=== PATIENT | female | born 1965 | race Caucasian/White ===

== ENCOUNTER → 2016-10-14 | Outpatient (REF) | payer OTHER ==
[~2016-10-14] MED LIST: FISH1000 PO; MOBI15TA PO; MULT1TAB10 PO; SERT-141 PO; TRAZ50TA4 PO; VITA500C24 PO
[2016-10-14 16:49] LABS: ALBUMIN 3.5 GM/DL (3.2-5.2); ALT/SGPT 33 U/L (12-78); GLOMERULAR FILTRATION RATE > 60.0 (>51)
[2016-10-14 17:21] LABS: BASO % 0.3 % (0.0-1.0); EOS # 0.1 K/mm3 (0.0-0.50); EOS % 1.4 % (0.0-3.0); LARGE UNSTAINED CELL # 0.3 K/mm3 (0.0-0.4); LARGE UNSTAINED CELL % 3.8 % (0.0-4.0); LYMPH % 24.3 % (24.0-44.0); MEAN CORPUSCULAR HGB CONC 33.7 g/dl (32.0-36.5); MONO # 0.6 K/mm3 (0.0-0.8); MONO % 6.7 % (0.0-5.0); NEUTROPHILS # 5.2 K/mm3 (1.8-7.7); NEUTROPHILS % 63.6 % (36.0-66.0); PLATELET COUNT, AUTOMATED 314 k/mm3 (150-450); RED CELL DISTRIBUTION WIDTH 13.8 % (11.5-14.5); WHITE BLOOD COUNT 8.2 K/mm3 (4.0-10.0)
[2016-10-14 17:43] LABS: ERYTHROCYTE SEDIMENTATION RATE 43 mm/hr (0-30)
== END ==
LOC: M LABDRWCV 16:17
PROVIDERS: ATTEND Internal Medicine Rheumatology
DX: M05.79 Rheumatoid arthritis with rheumatoid factor of multiple sites without organ or systems involvement (principal); Z79.899 Other long term (current) drug therapy

== ENCOUNTER → 2016-11-05 | Outpatient (REF) | payer OTHER | LOC: M LABDRAWC 16:13 → M LABDRWCV 16:13 | PROVIDERS: ATTEND Internal Medicine Rheumatology | DX: E55.9 Vitamin D deficiency, unspecified (principal) ==

== ENCOUNTER → 2016-11-25 | Outpatient (REF) | payer OTHER ==
[2016-11-25 18:55] LABS: ALBUMIN 3.8 GM/DL (3.2-5.2); ALT/SGPT 30 U/L (12-78); CREATININE FOR GFR 0.78 MG/DL (0.55-1.02); GLOMERULAR FILTRATION RATE > 60.0 (>51)
[2016-11-25 19:23] LABS: BASO % 0.4 % (0.0-1.0); EOS # 0.1 K/mm3 (0.0-0.50); EOS % 1.5 % (0.0-3.0); LARGE UNSTAINED CELL # 0.2 K/mm3 (0.0-0.4); LARGE UNSTAINED CELL % 2.8 % (0.0-4.0); LYMPH # 2.2 K/mm3 (1.5-4.5); MEAN CORPUSCULAR HEMOGLOBIN 30.5 pg (27.0-33.0); MEAN CORPUSCULAR HGB CONC 32.1 g/dl (32.0-36.5); MEAN CORPUSCULAR VOLUME 94.8 fl (80.0-96.0); MONO # 0.7 K/mm3 (0.0-0.8); MONO % 8.7 % (0.0-5.0); NEUTROPHILS # 4.9 K/mm3 (1.8-7.7); NEUTROPHILS % 61.6 % (36.0-66.0); PLATELET COUNT, AUTOMATED 324 k/mm3 (150-450); RED CELL DISTRIBUTION WIDTH 13.9 % (11.5-14.5)
== END ==
LOC: M LAB REF 16:51
PROVIDERS: ATTEND Internal Medicine Rheumatology
DX: M05.79 Rheumatoid arthritis with rheumatoid factor of multiple sites without organ or systems involvement (principal); M77.01 Medial epicondylitis, right elbow; M77.42 Metatarsalgia, left foot; Z79.899 Other long term (current) drug therapy

== ENCOUNTER → 2016-12-14 | Outpatient (REF) | payer OTHER ==
[~2016-12-14] MED LIST changes: -SERT-141 PO; +SERT50TA PO
[2016-12-14 12:27] LABS: BASO % 0.3 % (0.0-1.0); EOS # 0.1 K/mm3 (0.0-0.50); LARGE UNSTAINED CELL # 0.2 K/mm3 (0.0-0.4); LARGE UNSTAINED CELL % 2.6 % (0.0-4.0); LYMPH # 1.7 K/mm3 (1.5-4.5); LYMPH % 18.9 % (24.0-44.0); MEAN CORPUSCULAR HEMOGLOBIN 30.1 pg (27.0-33.0); MEAN CORPUSCULAR HGB CONC 33.2 g/dl (32.0-36.5); MEAN CORPUSCULAR VOLUME 90.6 fl (80.0-96.0); MONO # 0.6 K/mm3 (0.0-0.8); NEUTROPHILS # 6.2 K/mm3 (1.8-7.7); NEUTROPHILS % 70.2 % (36.0-66.0); PLATELET COUNT, AUTOMATED 328 k/mm3 (150-450); RED CELL DISTRIBUTION WIDTH 13.6 % (11.5-14.5); WHITE BLOOD COUNT 8.8 K/mm3 (4.0-10.0)
[2016-12-14 12:39] LABS: ANION GAP 9 MEQ/L (8-16); BLOOD UREA NITROGEN 19 MG/DL (7-18); CALCIUM LEVEL 9.5 MG/DL (8.5-10.1); CARBON DIOXIDE LEVEL 28 MEQ/L (21-32); CHLORIDE LEVEL 103 MEQ/L (98-107); CREATININE FOR GFR 0.71 MG/DL (0.55-1.02); GLOMERULAR FILTRATION RATE > 60.0 (>51); GLUCOSE, FASTING 78 MG/DL (70-105); POTASSIUM SERUM 4.6 MEQ/L (3.5-5.1); SODIUM LEVEL 140 MEQ/L (136-145)
== END ==
LOC: M LABDRAWC 11:37
PROVIDERS: ATTEND Orthopaedic Surgery
DX: M20.12 Hallux valgus (acquired), left foot (principal)

== ENCOUNTER → 2017-01-04 | Outpatient (REF) | payer OTHER ==
[2017-01-04 19:06] LABS: BASO % 0.4 % (0.0-1.0); EOS # 0.1 K/mm3 (0.0-0.50); EOS % 1.4 % (0.0-3.0); LARGE UNSTAINED CELL # 0.2 K/mm3 (0.0-0.4); LARGE UNSTAINED CELL % 2.3 % (0.0-4.0); LYMPH # 2.2 K/mm3 (1.5-4.5); LYMPH % 19.6 % (24.0-44.0); MEAN CORPUSCULAR HEMOGLOBIN 29.9 pg (27.0-33.0); MEAN CORPUSCULAR HGB CONC 32.8 g/dl (32.0-36.5); MEAN CORPUSCULAR VOLUME 91.2 fl (80.0-96.0); MONO # 0.6 K/mm3 (0.0-0.8); MONO % 5.9 % (0.0-5.0); NEUTROPHILS % 70.3 % (36.0-66.0); PLATELET COUNT, AUTOMATED 347 k/mm3 (150-450); RED CELL DISTRIBUTION WIDTH 13.9 % (11.5-14.5); WHITE BLOOD COUNT 9.9 K/mm3 (4.0-10.0)
[2017-01-04 20:12] LABS: ALBUMIN 3.9 GM/DL (3.2-5.2); ALT/SGPT 54 U/L (12-78); CREATININE FOR GFR 0.76 MG/DL (0.55-1.02); GLOMERULAR FILTRATION RATE > 60.0 (>51)
== END ==
LOC: M LABDRWCV 16:24
PROVIDERS: ATTEND Internal Medicine Rheumatology
DX: Z51.81 Encounter for therapeutic drug level monitoring (principal); Z79.899 Other long term (current) drug therapy; M05.79 Rheumatoid arthritis with rheumatoid factor of multiple sites without organ or systems involvement; M77.42 Metatarsalgia, left foot

== ENCOUNTER → 2017-01-27 | Outpatient (REF) | payer OTHER ==
[2017-01-27 17:41] LABS: ALBUMIN 3.6 GM/DL (3.2-5.2); ALT/SGPT 34 U/L (12-78); CREATININE FOR GFR 0.82 MG/DL (0.55-1.02); GLOMERULAR FILTRATION RATE > 60.0 (>51)
[2017-01-27 18:00] LABS: BASO % 0.3 % (0.0-1.0); EOS # 0.1 K/mm3 (0.0-0.50); EOS % 1.5 % (0.0-3.0); LARGE UNSTAINED CELL # 0.3 K/mm3 (0.0-0.4); LYMPH # 1.8 K/mm3 (1.5-4.5); LYMPH % 19.7 % (24.0-44.0); MEAN CORPUSCULAR HEMOGLOBIN 30.7 pg (27.0-33.0); MEAN CORPUSCULAR HGB CONC 32.6 g/dl (32.0-36.5); MEAN CORPUSCULAR VOLUME 94.2 fl (80.0-96.0); MONO # 0.8 K/mm3 (0.0-0.8); MONO % 8.7 % (0.0-5.0); NEUTROPHILS # 6.2 K/mm3 (1.8-7.7); NEUTROPHILS % 66.8 % (36.0-66.0); PLATELET COUNT, AUTOMATED 334 k/mm3 (150-450); RED CELL DISTRIBUTION WIDTH 14.2 % (11.5-14.5); WHITE BLOOD COUNT 9.3 K/mm3 (4.0-10.0)
== END ==
LOC: M LAB REF 16:31
PROVIDERS: ATTEND Internal Medicine Rheumatology
DX: M05.79 Rheumatoid arthritis with rheumatoid factor of multiple sites without organ or systems involvement (principal); M77.42 Metatarsalgia, left foot; M77.01 Medial epicondylitis, right elbow; Z79.899 Other long term (current) drug therapy

== ENCOUNTER → 2017-01-28 | Outpatient (REF) | payer OTHER | LOC: M LABDRAW1 11:31 | PROVIDERS: ATTEND Neurological Surgery | DX: E66.9 Obesity, unspecified (principal) ==

== ENCOUNTER → 2017-02-26 | Outpatient (REF) | payer OTHER ==
[~2017-02-26] MED LIST changes: +ARNU1INH; +GABA600T; +METH2.5TA PO; +MOBI7.5T10 PO; +NYST50SS SS; +OMEP20CA3; +SERT-138
[2017-02-26 11:51] LABS: BASO % 0.4 % (0.0-1.0); EOS # 0.1 K/mm3 (0.0-0.50); EOS % 1.5 % (0.0-3.0); LARGE UNSTAINED CELL # 0.3 K/mm3 (0.0-0.4); LYMPH # 1.6 K/mm3 (1.5-4.5); LYMPH % 17.8 % (24.0-44.0); MEAN CORPUSCULAR HEMOGLOBIN 30.1 pg (27.0-33.0); MEAN CORPUSCULAR HGB CONC 32.6 g/dl (32.0-36.5); MEAN CORPUSCULAR VOLUME 92.3 fl (80.0-96.0); MONO # 0.7 K/mm3 (0.0-0.8); MONO % 7.9 % (0.0-5.0); NEUTROPHILS # 6.4 K/mm3 (1.8-7.7); NEUTROPHILS % 69.5 % (36.0-66.0); PLATELET COUNT, AUTOMATED 324 k/mm3 (150-450); RED CELL DISTRIBUTION WIDTH 14.8 % (11.5-14.5); WHITE BLOOD COUNT 9.2 K/mm3 (4.0-10.0)
[2017-02-26 12:04] LABS: ALBUMIN 3.4 GM/DL (3.2-5.2); ALT/SGPT 34 U/L (12-78); CREATININE FOR GFR 0.73 MG/DL (0.55-1.02); GLOMERULAR FILTRATION RATE > 60.0 (>51)
== END ==
LOC: M LABDRAWC 11:15
PROVIDERS: ATTEND Internal Medicine Rheumatology
DX: M05.79 Rheumatoid arthritis with rheumatoid factor of multiple sites without organ or systems involvement (principal); M77.01 Medial epicondylitis, right elbow; M77.42 Metatarsalgia, left foot; Z79.899 Other long term (current) drug therapy

== ENCOUNTER 2017-03-04 11:59 | Emergency (ER) | payer OTHER ==
[~2017-03-04] VITALS: Ht 165.1 cm; Wt 96.6 kg
[~2017-03-04 11:59] MED LIST changes: -ARNU1INH; -GABA600T; -METH2.5TA PO; -MOBI7.5T10 PO; -NYST50SS SS; -OMEP20CA3; -SERT-138
[2017-03-04] MEDS ORDERED: METH2.5TA PO (12:15)
[2017-03-04] MEDS ORDERED: ASPIRIN 81 MG CHEW TABLET PO ONE (13:15)
[2017-03-04] MEDS ORDERED: MORPHINE 2 MG/ML 1ML SYRINGE IV PRN (13:15)
--- NOTE | 2017-03-04 13:23 | ED PDOC ---
Post-Departure Follow-Up Patient presents to the ED with onset of posterior chest pain (between shoulder blades) that radiated up the back of her neck yesterday. Today pain is also anterior chest. Pain is reproducible with inspiration and palpation, however, she is post-menopausal (s/p hysterectomy), smokes cigarettes and has had recent orthopedic surgery which elevates the concern for cardiac or PE as cause of chest pain. Orders were placed to evaluate further. ASA and morphine was ordered for pain. NED STOREY. [employer]ACHINE [employer]ED[employer] Mar 04, 2017 13:23
--- NOTE | 2017-03-04 13:49 | REP ---
PA and lateral chest: Comparison 03/19/2016. Lung garcia are clear except for bibasilar parenchymal scarring, unchanged. There are no acute infiltrates. No masses or nodules. Cardiac size is normal. The debora, mediastinum, and bony thorax are. Impression: Essentially negative PA and lateral chest. No interval change. Signed by Emiliano Villela MD 03/04/2017 01:41 P
[2017-03-04 14:10] LABS: VENOUS BASE EXCESS 2.9 (-2.0-2.0); VENOUS O2 SATURATION 73.4 % (60.0-80.0); VENOUS PARTIAL PRESSURE CO2 49.7 mmHg (38.0-50.0); VENOUS PARTIAL PRESSURE O2 38.1 mmHg (30.0-50.0); VENOUS STANDARD HCO3 26.5 MEQ/L; VENOUS TOTAL CO2 30.4 MEQ/L (24.0-28.0)
[2017-03-04 14:12] LABS: BASO % 0.3 % (0.0-1.0); EOS # 0.1 K/mm3 (0.0-0.50); EOS % 0.8 % (0.0-3.0); LARGE UNSTAINED CELL # 0.3 K/mm3 (0.0-0.4); LARGE UNSTAINED CELL % 2.5 % (0.0-4.0); LYMPH # 1.7 K/mm3 (1.5-4.5); LYMPH % 12.2 % (24.0-44.0); MEAN CORPUSCULAR HEMOGLOBIN 30.2 pg (27.0-33.0); MEAN CORPUSCULAR HGB CONC 33.1 g/dl (32.0-36.5); MEAN CORPUSCULAR VOLUME 91.3 fl (80.0-96.0); MONO # 0.9 K/mm3 (0.0-0.8); MONO % 7.5 % (0.0-5.0); NEUTROPHILS # 8.9 K/mm3 (1.8-7.7); NEUTROPHILS % 76.6 % (36.0-66.0); PLATELET COUNT, AUTOMATED 280 k/mm3 (150-450); RED CELL DISTRIBUTION WIDTH 14.9 % (11.5-14.5); WHITE BLOOD COUNT 11.6 K/mm3 (4.0-10.0)
--- NOTE | 2017-03-04 14:30 | ED PDOC ---
Post-Departure Follow-Up Patient resting comfortably, texting on her phone. Awaiting lab results NED STOREY. [facility] Mar 04, 2017 14:30
[2017-03-04 14:48] LABS: ERYTHROCYTE SEDIMENTATION RATE 51 mm/hr (0-30)
[2017-03-04 14:56] LABS: ANION GAP 5 MEQ/L (8-16); BLOOD UREA NITROGEN 12 MG/DL (7-18); CALCIUM LEVEL 8.9 MG/DL (8.5-10.1); CARBON DIOXIDE LEVEL 31 MEQ/L (21-32); CHLORIDE LEVEL 102 MEQ/L (98-107); CREATININE FOR GFR 0.72 MG/DL (0.55-1.02); GLOMERULAR FILTRATION RATE > 60.0 (>51); GLUCOSE, FASTING 98 MG/DL (70-105); POTASSIUM SERUM 3.6 MEQ/L (3.5-5.1); SODIUM LEVEL 138 MEQ/L (136-145)
--- NOTE | 2017-03-04 15:21 | ED PDOC ---
Post-Departure Follow-Up Likely inflammatory as ESR and CRP are elevated, but d-dimer mildly elevated as well -> CTA thorax ordered to eval for PE NED STOREY CONTROL DIRECTOR Mar 04, 2017 15:21
[2017-03-04] MEDS ORDERED: ISOVUE-370 76% 100ML VIAL (Q9967) As Ordered ONE (15:28)
--- NOTE | 2017-03-04 16:19 | REP ---
CT pulmonary angiogram: With IV contrast: History: Pleuritic chest pain. Mildly elevated D-dimer. Comparison studies: Comparison is made with today's chest x-ray and prior CT pulmonary angiogram from 06/03/2014. Contrast dose: 75 mL of Isovue [address] technique: Helical scanning is acquired and overlapping 1.5 mm and contiguous 3 mm axial images are reformatted. In addition, a 3-D work station is deployed to generate thick slab maximum intensity projection images in sagittal and coronal imaging projections. CT pulmonary angiographic findings: There is good opacification of the pulmonary arterial tree and there is no CT evidence of pulmonary embolism. Maximal intensity projection images show no filling defect or vessel cutoff. Thoracic aorta enhances homogeneously and is normal in coarse caliber and contour. No hilar or mediastinal mass or adenopathy is observed. No pleural or pericardial effusion is seen. There is linear fibrosis versus discoid atelectasis seen in the right middle lobe. Similar linear opacities seen in the right middle lobe distribution on 06/03/[address] No other pulmonary infiltrate is seen. Visualized upper abdominal structures are unremarkable. Bone window settings show no bony destructive lesion. Impression: 1. No CT evidence of pulmonary embolism. 2. Fibrosis versus atelectasis right middle lobe distribution. Signed by Hector Ramon MD 03/04/2017 04:50 P
[2017-03-04 16:31] VITALS: BP 99/58
--- NOTE | 2017-03-04 16:40 | ED PDOC ---
Post-Departure Follow-Up CT angio results discussed with the patient. Discharge instructions reviewed with the patient including refilling her prescription for Mobic, follow-up with her pain specialist or PCP and worrisome signs to return to the ED for. Questions answered. Patient states understanding to the instructions. NED STOREY. [facility] Mar 04, 2017 16:40
[2017-03-04] MEDS ORDERED: MOBI7.5T10 PO (16:45)
[2017-03-04] MEDS ORDERED: KETOROLAC 30 MG/ML VIAL (J1885) IV ONE (16:45)
[2017-03-05] MEDS ORDERED: ARNU1INH (07:34)
[2017-03-05] MEDS ORDERED: SERT-138 (07:34)
[2017-03-05] MEDS ORDERED: GABA600T (07:34)
[2017-03-05] MEDS ORDERED: OMEP20CA3 (07:34)
[2017-03-05] MEDS ORDERED: NYST50SS SS (11:48)
--- NOTE | 2017-03-05 11:52 | ECGEPIP ---
Stationary ECG Study [facility] - ED Test Date: 2017-03-04 Pat Name: RAZ DOBBINS Department: Room: - Gender: F Stock Pitcher: francisca : 1965 Requested By: BOWEN Garcia Order Number: [id number] Reading MD: Joie Ballard Measurements Intervals Walker Rate: 87 P: 67 TX: 136 QRS: 37 QRSD: 82 T: 49 QT: 357 QTc: 431 Interpretive Statements SINUS RHYTHM NSTTW ABNORMALITY LOW VOLTAGE LIMB NO PRIOR FOR COMPARISON Electronically Signed On 03-05-2017 11:52:10 EDT by Joie Ballard
== END 2017-03-04 17:00 | disposition home or self-care (01) ==
LOC: M ED 12:46
DX: M94.0 Chondrocostal junction syndrome [Tietze] (principal); M06.9 Rheumatoid arthritis, unspecified; F17.200 Nicotine dependence, unspecified, uncomplicated; Z82.49 Family history of ischemic heart disease and other diseases of the circulatory system; Z90.79 Acquired absence of other genital organ(s); Z90.89 Acquired absence of other organs; Z79.899 Other long term (current) drug therapy

== ENCOUNTER 2017-03-05 07:26 | Emergency (ER) | payer OTHER ==
[~2017-03-05] VITALS: Ht 165.1 cm; Wt 96.6 kg
[~2017-03-05 07:26] MED LIST changes: +METH2.5TA PO; +MOBI7.5T10 PO
[2017-03-05] MEDS ORDERED: ARNU1INH (07:34)
[2017-03-05] MEDS ORDERED: GABA600T (07:34)
[2017-03-05] MEDS ORDERED: SERT-138 (07:34)
[2017-03-05] MEDS ORDERED: OMEP20CA3 (07:34)
[2017-03-05] MEDS ORDERED: methylPREDNISolone INJ 125 MG/2 ML VIAL (J2930) IV ONE (08:45)
[2017-03-05] MEDS ORDERED: KETOROLAC 30 MG/ML VIAL (J1885) IV ONE ×2 (08:45→09:30)
[2017-03-05 09:04] LABS: MEAN CORPUSCULAR HEMOGLOBIN 30.4 pg (27.0-33.0); MEAN CORPUSCULAR HGB CONC 32.7 g/dl (32.0-36.5); MEAN CORPUSCULAR VOLUME 92.8 fl (80.0-96.0); RED CELL DISTRIBUTION WIDTH 14.6 % (11.5-14.5); WHITE BLOOD COUNT 11.8 K/mm3 (4.0-10.0)
[2017-03-05 09:24] LABS: ANION GAP 3 MEQ/L (8-16); BLOOD UREA NITROGEN 13 MG/DL (7-18); CALCIUM LEVEL 9.3 MG/DL (8.5-10.1); CARBON DIOXIDE LEVEL 33 MEQ/L (21-32); CHLORIDE LEVEL 105 MEQ/L (98-107); CREATININE FOR GFR 0.68 MG/DL (0.55-1.02); GLOMERULAR FILTRATION RATE > 60.0 (>51); GLUCOSE, FASTING 92 MG/DL (70-105); SODIUM LEVEL 141 MEQ/L (136-145)
[2017-03-05] MEDS ORDERED: GI COCKTAIL 50ML BTL(HYOSCYAMINE/MAALOX/LIDOCAINE VISCOUS)(1:3:1) PO ONE (09:30)
[2017-03-05 10:06] LABS: BANDS 1 % (< 11); EOSINOPHILS 2 % (0-5)
[2017-03-05 10:07] LABS: ANISOCYTOSIS 1+
--- NOTE | 2017-03-05 11:20 | REP ---
Soft-tissue neck x-ray: Three views. History: Throat pain. Sensation of throat closing. Comparison is made with January 29, 2017 cervical spine radiographs. Findings: On lateral projection the patient is seen to be edentulous. The epiglottis and aryepiglottic folds are unremarkable. Prevertebral soft tissues are not thickened. The glottic and subglottic airway is unremarkable. No opaque foreign body is seen. There are degenerative disc changes in the cervical spine most pronounced at C4-5, C5-6, and C6-7. Impression: Unremarkable soft tissue neck x-ray. Signed by Hector Ramon MD 03/05/2017 01:19 P
[2017-03-05] MEDS ORDERED: PERCOCET 5MG/325MG TAB PO ONE (11:45)
[2017-03-05] MEDS ORDERED: NYST50SS SS (11:48)
[2017-03-05 12:01] VITALS: BP 116/63
== END 2017-03-05 12:02 | disposition home or self-care (01) ==
LOC: M ED 09:30
DX: R07.0 Pain in throat (principal); M06.9 Rheumatoid arthritis, unspecified; F17.200 Nicotine dependence, unspecified, uncomplicated; Z90.79 Acquired absence of other genital organ(s); Z90.89 Acquired absence of other organs

== ENCOUNTER → 2017-03-09 | Outpatient (REF) | payer OTHER ==
[~2017-03-09] MED LIST changes: +ARNU1INH; +GABA600T; +NYST50SS SS; +OMEP20CA3; +SERT-138
== END ==
LOC: M SFHCCAPE 09:06
PROVIDERS: ATTEND Physician Assistant
DX: J01.00 Acute maxillary sinusitis, unspecified (principal)

== ENCOUNTER → 2017-03-29 | Outpatient (REF) | payer OTHER ==
[~2017-03-29] MED LIST changes: +MOBI4TAB PO; -MOBI7.5T10 PO; +TRAZ50TA11 PO; -TRAZ50TA4 PO
[2017-03-29 19:51] LABS: MEAN CORPUSCULAR HEMOGLOBIN 31.5 pg (27.0-33.0); MEAN CORPUSCULAR HGB CONC 33.5 g/dl (32.0-36.5); MEAN CORPUSCULAR VOLUME 93.9 fl (80.0-96.0); RED CELL DISTRIBUTION WIDTH 14.2 % (11.5-14.5); WHITE BLOOD COUNT 9.4 K/mm3 (4.0-10.0)
[2017-03-29 21:26] LABS: ALBUMIN 3.7 GM/DL (3.2-5.2); ALT/SGPT 29 U/L (12-78); CREATININE FOR GFR 0.73 MG/DL (0.55-1.02); GLOMERULAR FILTRATION RATE > 60.0 (>51)
== END ==
LOC: M LABDRWCV 17:06
PROVIDERS: ATTEND Internal Medicine Rheumatology
DX: M05.79 Rheumatoid arthritis with rheumatoid factor of multiple sites without organ or systems involvement (principal); M77.01 Medial epicondylitis, right elbow; M77.42 Metatarsalgia, left foot; Z79.899 Other long term (current) drug therapy

== ENCOUNTER → 2017-04-28 | Outpatient (REF) | payer OTHER ==
[2017-04-28 19:41] LABS: ALBUMIN 3.6 GM/DL (3.2-5.2); ALT/SGPT 35 U/L (12-78); CREATININE FOR GFR 0.74 MG/DL (0.55-1.02); GLOMERULAR FILTRATION RATE > 60.0 (>51)
[2017-04-28 19:49] LABS: BASO % 0.5 % (0.0-1.0); EOS # 0.2 K/mm3 (0.0-0.50); EOS % 2.1 % (0.0-3.0); LARGE UNSTAINED CELL # 0.3 K/mm3 (0.0-0.4); LARGE UNSTAINED CELL % 3.5 % (0.0-4.0); LYMPH # 2.2 K/mm3 (1.5-4.5); LYMPH % 25.1 % (24.0-44.0); MEAN CORPUSCULAR HEMOGLOBIN 30.6 pg (27.0-33.0); MEAN CORPUSCULAR HGB CONC 32.5 g/dl (32.0-36.5); MEAN CORPUSCULAR VOLUME 94.1 fl (80.0-96.0); MONO # 0.6 K/mm3 (0.0-0.8); NEUTROPHILS # 4.7 K/mm3 (1.8-7.7); NEUTROPHILS % 60.8 % (36.0-66.0); PLATELET COUNT, AUTOMATED 272 k/mm3 (150-450); RED CELL DISTRIBUTION WIDTH 14.6 % (11.5-14.5); WHITE BLOOD COUNT 7.8 K/mm3 (4.0-10.0)
== END ==
LOC: M LAB REF 17:24
PROVIDERS: ATTEND Internal Medicine Rheumatology
DX: M05.79 Rheumatoid arthritis with rheumatoid factor of multiple sites without organ or systems involvement (principal); M77.01 Medial epicondylitis, right elbow; M77.42 Metatarsalgia, left foot; Z79.899 Other long term (current) drug therapy

== ENCOUNTER 2017-05-11 15:06 | Emergency (ER) | payer OTHER ==
[~2017-05-11] VITALS: Ht 165.1 cm; Wt 95.5 kg
[2017-05-11 15:06] VITALS: BP 112/61
== END 2017-05-11 16:32 | disposition left against medical advice (07) ==
LOC: M ED 15:06
DX: R22.40 Localized swelling, mass and lump, unspecified lower limb (principal); Z53.29 Procedure and treatment not carried out because of patient's decision for other reasons

== ENCOUNTER → 2017-06-08 | Outpatient (REF) | payer OTHER ==
[2017-06-08 11:18] LABS: BASO % 0.6 % (0.0-1.0); EOS # 0.1 K/mm3 (0.0-0.50); EOS % 1.1 % (0.0-3.0); LARGE UNSTAINED CELL # 0.2 K/mm3 (0.0-0.4); LARGE UNSTAINED CELL % 2.5 % (0.0-4.0); LYMPH # 1.8 K/mm3 (1.5-4.5); LYMPH % 19.7 % (24.0-44.0); MEAN CORPUSCULAR HEMOGLOBIN 30.5 pg (27.0-33.0); MEAN CORPUSCULAR HGB CONC 32.9 g/dl (32.0-36.5); MEAN CORPUSCULAR VOLUME 92.6 fl (80.0-96.0); MONO # 0.6 K/mm3 (0.0-0.8); MONO % 7.8 % (0.0-5.0); NEUTROPHILS # 5.6 K/mm3 (1.8-7.7); NEUTROPHILS % 68.3 % (36.0-66.0); PLATELET COUNT, AUTOMATED 311 k/mm3 (150-450); RED CELL DISTRIBUTION WIDTH 14.9 % (11.5-14.5); WHITE BLOOD COUNT 8.2 K/mm3 (4.0-10.0)
[2017-06-08 11:55] LABS: ALBUMIN 3.7 GM/DL (3.2-5.2); ALT/SGPT 41 U/L (12-78); CREATININE FOR GFR 0.59 MG/DL (0.55-1.02); GLOMERULAR FILTRATION RATE > 60.0 (>51)
== END ==
LOC: M LABDRAW1 09:14
PROVIDERS: ATTEND Internal Medicine Rheumatology
DX: M05.79 Rheumatoid arthritis with rheumatoid factor of multiple sites without organ or systems involvement (principal); Z79.899 Other long term (current) drug therapy

== ENCOUNTER → 2017-08-05 | Outpatient (REF) | payer OTHER | LOC: M SFHCCAPE 06:57 | PROVIDERS: ATTEND Physician Assistant | DX: E66.09 Other obesity due to excess calories (principal); M81.0 Age-related osteoporosis without current pathological fracture; Z53.9 Procedure and treatment not carried out, unspecified reason ==

== ENCOUNTER → 2017-08-05 | Outpatient (REF) | payer OTHER ==
[2017-08-05 17:11] LABS: ALBUMIN 3.6 GM/DL (3.2-5.2); ALT/SGPT 31 U/L (12-78); CREATININE FOR GFR 0.77 MG/DL (0.55-1.02); GLOMERULAR FILTRATION RATE > 60.0 (>51)
[2017-08-05 17:15] LABS: BASO # 0.1 10^3/uL (0.0-0.2); BASO % 0.5 % (0.0-1.0); EOS # 0.1 10^3/uL (0.0-0.50); EOS % 1.3 % (0.0-3.0); IMMATURE GRANULOCYTE % 0.4 % (0-0); LYMPH # 2.1 10^3/uL (1.5-4.5); LYMPH % 20.6 % (24.0-44.0); MEAN CORPUSCULAR HEMOGLOBIN 29.7 pg (27.0-33.0); MEAN CORPUSCULAR HGB CONC 32.1 g/dl (32.0-36.5); MEAN CORPUSCULAR VOLUME 92.5 fl (80.0-96.0); MONO # 1.2 10^3/uL (0.0-0.8); MONO % 11.4 % (0.0-5.0); NEUTROPHILS # 6.8 10^3/uL (1.8-7.7); NEUTROPHILS % 65.8 % (36.0-66.0); PLATELET COUNT, AUTOMATED 328 10^3/uL (150-450); RED CELL DISTRIBUTION WIDTH 14.8 % (11.5-14.5); WHITE BLOOD COUNT 10.3 10^3/uL (4.0-10.0)
[2017-08-05 18:16] LABS: ERYTHROCYTE SEDIMENTATION RATE 49 mm/hr (0-30)
== END ==
LOC: M LABDRWCV 16:33
PROVIDERS: ATTEND Internal Medicine Rheumatology
DX: M05.79 Rheumatoid arthritis with rheumatoid factor of multiple sites without organ or systems involvement (principal); Z79.899 Other long term (current) drug therapy

== ENCOUNTER → 2017-08-16 | Outpatient (REF) | payer OTHER ==
[2017-08-16 17:18] LABS: BASO # 0.1 10^3/uL (0.0-0.2); BASO % 0.5 % (0.0-1.0); EOS # 0.1 10^3/uL (0.0-0.50); EOS % 1.4 % (0.0-3.0); IMMATURE GRANULOCYTE % 0.4 % (0-0); LYMPH # 2.4 10^3/uL (1.5-4.5); LYMPH % 24.3 % (24.0-44.0); MEAN CORPUSCULAR HEMOGLOBIN 29.3 pg (27.0-33.0); MEAN CORPUSCULAR HGB CONC 32.6 g/dl (32.0-36.5); MEAN CORPUSCULAR VOLUME 89.8 fl (80.0-96.0); MONO # 0.9 10^3/uL (0.0-0.8); MONO % 8.7 % (0.0-5.0); NEUTROPHILS # 6.4 10^3/uL (1.8-7.7); NEUTROPHILS % 64.7 % (36.0-66.0); PLATELET COUNT, AUTOMATED 367 10^3/uL (150-450); RED CELL DISTRIBUTION WIDTH 14.5 % (11.5-14.5); WHITE BLOOD COUNT 9.8 10^3/uL (4.0-10.0)
[2017-08-16 17:23] LABS: ALBUMIN 3.6 GM/DL (3.2-5.2); ALBUMIN/GLOBULIN RATIO 0.97 (1.00-1.93); ALKALINE PHOSPHATASE 125 U/L (45-117); ALT/SGPT 35 U/L (12-78); ANION GAP 6 MEQ/L (8-16); AST/SGOT 22 U/L (7-37); BILIRUBIN,TOTAL 0.2 MG/DL (0.2-1.0); BLOOD UREA NITROGEN 15 MG/DL (7-18); CALCIUM LEVEL 9.3 MG/DL (8.5-10.1); CARBON DIOXIDE LEVEL 29 MEQ/L (21-32); CHLORIDE LEVEL 103 MEQ/L (98-107); CHOLESTEROL LEVEL 221 MG/DL (<200); CREATININE FOR GFR 0.78 MG/DL (0.55-1.02); FREE T4 0.81 NG/DL (0.76-1.46); GLOMERULAR FILTRATION RATE > 60.0 (>51); GLUCOSE, FASTING 91 MG/DL (70-105); POTASSIUM SERUM 4.6 MEQ/L (3.5-5.1); SODIUM LEVEL 138 MEQ/L (136-145); TOTAL PROTEIN 7.3 GM/DL (6.4-8.2); TRIGLYCERIDES LEVEL 199 MG/DL (<150)
[2017-08-16 18:09] LABS: VITAMIN B12 LEVEL 645 PG/ML
[2017-08-16 18:10] LABS: FOLATE 15.9 NG/ML
== END ==
LOC: M SFHCCAPE 16:26
PROVIDERS: ATTEND Physician Assistant
DX: E66.09 Other obesity due to excess calories (principal); M81.0 Age-related osteoporosis without current pathological fracture

== ENCOUNTER → 2017-10-07 | Outpatient (REF) | payer OTHER ==
[2017-10-07 18:41] LABS: BASO # 0.1 10^3/uL (0.0-0.2); BASO % 0.6 % (0.0-1.0); EOS # 0.1 10^3/uL (0.0-0.50); EOS % 1.6 % (0.0-3.0); HEMOGLOBIN 12.6 g/dl (12.0-16.0); IMMATURE GRANULOCYTE % 0.3 % (0-0); LYMPH # 1.9 10^3/uL (1.5-4.5); LYMPH % 22.4 % (24.0-44.0); MEAN CORPUSCULAR HEMOGLOBIN 30.7 pg (27.0-33.0); MEAN CORPUSCULAR HGB CONC 33.2 g/dl (32.0-36.5); MEAN CORPUSCULAR VOLUME 92.7 fl (80.0-96.0); MONO # 0.8 10^3/uL (0.0-0.8); MONO % 8.9 % (0.0-5.0); NEUTROPHILS # 5.7 10^3/uL (1.8-7.7); NEUTROPHILS % 66.2 % (36.0-66.0); PLATELET COUNT, AUTOMATED 295 10^3/uL (150-450); RED CELL DISTRIBUTION WIDTH 14.7 % (11.5-14.5); WHITE BLOOD COUNT 8.6 10^3/uL (4.0-10.0)
[2017-10-07 18:58] LABS: ALBUMIN 3.7 GM/DL (3.2-5.2); ALT/SGPT 30 U/L (12-78); CREATININE FOR GFR 0.79 MG/DL (0.55-1.02); GLOMERULAR FILTRATION RATE > 60.0 (>51)
== END ==
LOC: M LAB REF 17:04
DX: Z79.899 Other long term (current) drug therapy (principal); M05.79 Rheumatoid arthritis with rheumatoid factor of multiple sites without organ or systems involvement; M77.01 Medial epicondylitis, right elbow; M77.42 Metatarsalgia, left foot

== ENCOUNTER → 2017-10-27 | Outpatient (REF) | payer OTHER ==
[2017-10-27 12:05] LABS: TOTAL 25(OH) VITAMIN D 18.9 NG/ML (30.0-100.0)
[2017-10-27 12:17] LABS: CALCIUM LEVEL 9.2 MG/DL (8.5-10.1)
== END ==
LOC: M LABDRAW1 10:51
DX: E55.9 Vitamin D deficiency, unspecified (principal)

== ENCOUNTER → 2017-12-20 | Outpatient (REF) | payer OTHER ==
[2017-12-20 17:25] LABS: ALBUMIN 3.9 GM/DL (3.2-5.2); ALBUMIN/GLOBULIN RATIO 1.08 (1.00-1.93); ALKALINE PHOSPHATASE 144 U/L (45-117); ALT/SGPT 30 U/L (12-78); ANION GAP 7 MEQ/L (8-16); AST/SGOT 17 U/L (7-37); BILIRUBIN,TOTAL 0.3 MG/DL (0.2-1.0); BLOOD UREA NITROGEN 14 MG/DL (7-18); CALCIUM LEVEL 8.7 MG/DL (8.5-10.1); CARBON DIOXIDE LEVEL 28 MEQ/L (21-32); CHLORIDE LEVEL 105 MEQ/L (98-107); CHOLESTEROL LEVEL 209 MG/DL (<200); CHOLESTEROL RISK RATIO 3.943 (<5); CREATININE FOR GFR 0.81 MG/DL (0.55-1.30); GLOMERULAR FILTRATION RATE > 60.0 (>51); GLUCOSE, FASTING 87 MG/DL (70-100); HDL CHOLESTEROL 53 MG/DL (>40); LDL CHOLESTEROL 116.8 MG/DL (<100); NON-HDL-C 156 MG/DL; POTASSIUM SERUM 4.6 MEQ/L (3.5-5.1); SODIUM LEVEL 140 MEQ/L (136-145); TOTAL PROTEIN 7.5 GM/DL (6.4-8.2); TRIGLYCERIDES LEVEL 196 MG/DL (<150)
== END ==
LOC: M SFHCCAPE 07:29
DX: E78.2 Mixed hyperlipidemia (principal)

== ENCOUNTER → 2018-04-27 | Outpatient (CLI) | payer OTHER | LOC: M EKG 14:01 | DX: Z01.818 Encounter for other preprocedural examination (principal); K21.9 Gastro-esophageal reflux disease without esophagitis; F41.9 Anxiety disorder, unspecified; J44.9 Chronic obstructive pulmonary disease, unspecified | CPT/HCPCS: 93005 ==

== ENCOUNTER 2018-04-29 06:04 | Day surgery (SDC) | payer OTHER ==
[2018-04-29] MEDS ORDERED: LR 1,000 ML IV ×4 (06:15→09:00)
[2018-04-29] MEDS ORDERED: PROPOFOL 200 MG/20 ML VIAL As Ordered ×2 (06:59)
[2018-04-29] MEDS ORDERED: ROCURONIUM BROMIDE 50 MG/5 ML VIAL As Ordered ×2 (06:59)
[2018-04-29] MEDS ORDERED: LIDOCAINE 2% INJ 100 MG/5 ML SDV (FOR ANES.) As Ordered ×2 (06:59)
[2018-04-29] MEDS ORDERED: ONDANSETRON 4MG/2ML VIAL (J2405) As Ordered ×2 (06:59)
[2018-04-29] MEDS ORDERED: dexameTHASONE 4 MG/ML 1ML VIAL (J1100) As Ordered ×4 (06:59)
[2018-04-29] MEDS ORDERED: fentaNYL 250 MCG/5 ML INJECTION (J3010) As Ordered ×2 (07:00)
[2018-04-29] MEDS ORDERED: MIDAZOLAM INJ 2 MG/2 ML VIAL (J2250) As Ordered ×2 (07:00)
[2018-04-29] MEDS ORDERED: KETOROLAC 60 MG/2 ML VIAL (J1885) As Ordered ×2 (08:04)
[2018-04-29] MEDS ORDERED: GLYCOPYRROLATE INJ 0.2 MG/ML 2 ML VIAL As Ordered ×2 (08:23)
[2018-04-29] MEDS ORDERED: NEOSTIGMINE 10 MG/10 ML VIAL (J2710) As Ordered ×2 (08:23)
[2018-04-29] MEDS: LIDOCAINE 1% SDV INJ 30 ML VIAL As Ordered ×2 (08:31)
[2018-04-29] MEDS: BUPIVACAINE HCL 0.25% 30 ML VIAL As Ordered ×2 (08:31)
[2018-04-29] MEDS: fentaNYL 100 MCG/2 ML INJECTION (J3010) IV ×8 (08:50→09:05)
[2018-04-29] MEDS: PERCOCET 5MG/325MG TAB PO ×4 (08:55→10:00)
[2018-04-29] MEDS ORDERED: ONDANSETRON 4MG/2ML VIAL (J2405) IV ×4 (09:00→09:15)
[2018-04-29] MEDS: MORPHINE 10 MG/ML 1ML VIAL (J2270) IV ×10 (09:05→09:25)
[2018-04-29] MEDS ORDERED: NORCO, ANEXSIA 5/325MG TABLET (HYDROcodone/ACETAMINOPHEN) PO ×4 (09:15)
[2018-04-29] MEDS ORDERED: KETOROLAC 30 MG/ML VIAL (J1885) IV ×2 (14:00)
== END 2018-04-29 10:34 | disposition home or self-care (01) ==
LOC: M SDC 06:04
DX: K42.9 Umbilical hernia without obstruction or gangrene (principal); J44.9 Chronic obstructive pulmonary disease, unspecified; K21.9 Gastro-esophageal reflux disease without esophagitis; F41.9 Anxiety disorder, unspecified; F32.9 Major depressive disorder, single episode, unspecified; M81.0 Age-related osteoporosis without current pathological fracture; Z79.899 Other long term (current) drug therapy
CPT/HCPCS: 49652

== ENCOUNTER → 2018-05-16 | Outpatient (REF) | payer OTHER ==
[2018-05-16 17:21] LABS: ALBUMIN 3.6 GM/DL (3.2-5.2); ALBUMIN/GLOBULIN RATIO 0.97 (1.00-1.93); ALKALINE PHOSPHATASE 146 U/L (45-117); ALT/SGPT 27 U/L (12-78); ANION GAP 6 MEQ/L (8-16); AST/SGOT 9 U/L (7-37); BILIRUBIN,TOTAL 0.3 MG/DL (0.2-1.0); BLOOD UREA NITROGEN 7 MG/DL (7-18); CALCIUM LEVEL 9.2 MG/DL (8.5-10.1); CARBON DIOXIDE LEVEL 30 MEQ/L (21-32); CHLORIDE LEVEL 107 MEQ/L (98-107); CREATININE FOR GFR 0.65 MG/DL (0.55-1.30); GLOMERULAR FILTRATION RATE > 60.0 (>51); GLUCOSE, FASTING 96 MG/DL (70-100); POTASSIUM SERUM 4.5 MEQ/L (3.5-5.1); SODIUM LEVEL 143 MEQ/L (136-145); TOTAL PROTEIN 7.3 GM/DL (6.4-8.2); URIC ACID 4.3 MG/DL (2.6-6.0)
[2018-05-16 17:22] LABS: BASO % 0.4 % (0.0-1.0); EOS # 0.2 10^3/uL (0.0-0.50); EOS % 1.5 % (0.0-3.0); HEMATOCRIT 40.9 % (36.0-47.0); HEMOGLOBIN 13.2 g/dl (12.0-15.5); IMMATURE GRANULOCYTE % 0.5 % (0-3.0); MEAN CORPUSCULAR HEMOGLOBIN 29.9 pg (27.0-33.0); MEAN CORPUSCULAR HGB CONC 32.3 g/dl (32.0-36.5); MEAN CORPUSCULAR VOLUME 92.5 fl (80.0-96.0); MONO # 0.9 10^3/uL (0.0-0.8); MONO % 8.5 % (0.0-5.0); NEUTROPHILS # 7.4 10^3/uL (1.8-7.7); NEUTROPHILS % 70.1 % (36.0-66.0); PLATELET COUNT, AUTOMATED 376 10^3/uL (150-450); RED BLOOD COUNT 4.42 10^6/uL (4.00-5.40); RED CELL DISTRIBUTION WIDTH 14.2 % (11.5-14.5); WHITE BLOOD COUNT 10.6 10^3/uL (4.0-10.0)
== END ==
LOC: M SFHCCAPE 11:20
DX: M79.671 Pain in right foot (principal)
CPT/HCPCS: 84550

== ENCOUNTER → 2018-05-16 | Outpatient (CLI) | payer OTHER | LOC: M CLY 14:29 | DX: M79.671 Pain in right foot (principal); M20.11 Hallux valgus (acquired), right foot | CPT/HCPCS: 73630 ==

== ENCOUNTER → 2018-07-06 | Outpatient (REF) | payer OTHER ==
[2018-07-06 12:36] LABS: ANION GAP 7 MEQ/L (8-16); BLOOD UREA NITROGEN 13 MG/DL (7-18); CARBON DIOXIDE LEVEL 30 MEQ/L (21-32); CHLORIDE LEVEL 104 MEQ/L (98-107); CREATININE FOR GFR 0.75 MG/DL (0.55-1.30); GLOMERULAR FILTRATION RATE > 60.0 (>51); GLUCOSE, FASTING 74 MG/DL (70-100); POTASSIUM SERUM 4.3 MEQ/L (3.5-5.1); SODIUM LEVEL 141 MEQ/L (136-145)
[2018-07-06 13:08] LABS: TOTAL 25(OH) VITAMIN D 44.4 NG/ML (30.0-100.0)
== END ==
LOC: M LABDRAW1 11:43
DX: E55.9 Vitamin D deficiency, unspecified (principal)

== ENCOUNTER → 2018-10-24 | Outpatient (CLI) | payer OTHER ==
[~2018-10-24] MED LIST changes: +CLAR10CA3 PO; +COMBAER6 INH; +DULO1CAP3; +FOLI1TAB11; -GABA600T; +GABA600T4; +GABA800T4; +METH2.5T48 PO; -METH2.5TA PO; +NABU-126; +TRAZ-160 PO; -TRAZ50TA11 PO; +VENTAER INH; +VITA50005
--- NOTE | 2018-10-24 13:22 | REP ---
Clinical: Atypical chest pain . Comparison: 03/04/2017 . Technique: PA and lateral. Findings: The mediastinum and cardiac silhouette are normal. The lung garcia are clear and without acute consolidation, effusion, or pneumothorax. The skeletal structures are intact and normal. Impression: 1. No acute cardiopulmonary process. Electronically Signed by Janusz Leonard MD 10/24/2018 01:14 P
== END ==
LOC: M CLY 12:52
PROVIDERS: ATTEND Physician Assistant
DX: R07.89 Other chest pain (principal)

== ENCOUNTER 2018-11-01 05:53 | Emergency (ER) | payer OTHER ==
[~2018-11-01] VITALS: Ht 165.1 cm; Wt 96.4 kg
[2018-11-01] MEDS ORDERED: ACETAMINOPHEN 325 MG TAB PO ONE (06:30)
[2018-11-01] MEDS ORDERED: ASPIRIN 325 MG TAB PO ONE (06:30)
[2018-11-01] MEDS ORDERED: NS 500 ML IV ONE (06:30)
[2018-11-01 06:35] LABS: BASO # 0.1 10^3/uL (0.0-0.2); BASO % 0.6 % (0.0-1.0); EOS # 0.2 10^3/uL (0.0-0.50); EOS % 1.9 % (0.0-3.0); HEMATOCRIT 36.1 % (36.0-47.0); HEMOGLOBIN 12.1 g/dl (12.0-15.5); LYMPH # 2.2 10^3/uL (1.5-4.5); LYMPH % 16.8 % (24.0-44.0); MEAN CORPUSCULAR HEMOGLOBIN 30.7 pg (27.0-33.0); MEAN CORPUSCULAR HGB CONC 33.5 g/dl (32.0-36.5); MEAN CORPUSCULAR VOLUME 91.6 fl (80.0-96.0); MONO # 1.2 10^3/uL (0.0-0.8); MONO % 9.4 % (0.0-5.0); NEUTROPHILS # 9.2 10^3/uL (1.8-7.7); NEUTROPHILS % 70.9 % (36.0-66.0); PLATELET COUNT, AUTOMATED 319 10^3/uL (150-450); RED BLOOD COUNT 3.94 10^6/uL (4.00-5.40); WHITE BLOOD COUNT 12.9 10^3/uL (4.0-10.0)
[2018-11-01 06:45] VITALS: BP 99/64
[2018-11-01 06:47] LABS: INR 0.99; PROTHROMBIN TIME 13.2 SECONDS (12.1-14.4)
[2018-11-01 07:09] LABS: BLOOD UREA NITROGEN 8 MG/DL (7-18); CALCIUM LEVEL 8.8 MG/DL (8.5-10.1); CARBON DIOXIDE LEVEL 27 MEQ/L (21-32); CHLORIDE LEVEL 103 MEQ/L (98-107); CPK CREATINE PHOSPHOKINASE 165 U/L (26-192); CREATININE FOR GFR 0.84 MG/DL (0.55-1.30); GLOMERULAR FILTRATION RATE > 60.0 (>51); GLUCOSE, FASTING 148 MG/DL (70-100); MB/CK RELATIVE INDEX 0.91 (< OR =4); POTASSIUM SERUM 3.3 MEQ/L (3.5-5.1); SODIUM LEVEL 139 MEQ/L (136-145); TROPONIN I < 0.02 NG/ML (< 0.10)
--- NOTE | 2018-11-02 08:42 | ECGEPIP ---
Stationary ECG Study [facility] - ED Test Date: 2018-11-01 Pat Name: RAZ DOBBINS Department: Room: - Gender: F Time Study Observer: gt : 1965 Requested By: YARIEL TOUSSAINT Order Number: [id number] Reading MD: Joie Ballard Measurements Intervals [place] Rate: 97 P: 71 GA: 134 QRS: 24 QRSD: 86 T: 49 QT: 287 QTc: 365 Interpretive Statements SINUS RHYTHM NONSPECIFIC T-WAVE ABNORMALITY RIGHT VENTRICULAR CONDUCTION DELAY NSTTW ABNORMALITY INCREASED RATE 04/27/18 Electronically Signed On 11-02-2018 8:41:54 EST by Joie Ballard
== END 2018-11-01 07:06 | disposition left against medical advice (07) ==
LOC: M ED 05:53
DX: R07.9 Chest pain, unspecified (principal); F17.200 Nicotine dependence, unspecified, uncomplicated

== ENCOUNTER → 2019-01-23 | Outpatient (CLI) | payer OTHER ==
[~2019-01-23] MED LIST changes: +SERT-141 PO; -SERT50TA PO
--- NOTE | 2019-01-24 06:40 | REP ---
Clinical: Follow up abnormal findings. Technique: Axial noncontrast images from the thoracic inlet to the upper abdomen with coronal and sagittal re-formations. Comparison: 10/06/2018, 09/27/2018, 03/04/2017, 06/03/2014. Findings: 9 mm noncalcified part solid density in the periphery of the left lower lobe (image 78) remains essentially unchanged when compared through 06/03/2014. A 4 mm noncalcified nodules also identified along the periphery of the right lower lobe (image 59) which remains stable through 06/03/2014 as well. Minimal fibroatelectatic changes in the right middle lobe also appear chronic and essentially unchanged. No acute consolidation, significant nodule, or mass lesion identified. No effusion. No pneumothorax. Tracheobronchial tree is patent. Mediastinum demonstrates normal thoracic aorta, pulmonary vasculature and heart/pericardium. Limited upper abdomen demonstrates normal bilateral adrenal glands. Impression: 1. Recently identified noncalcified nodules along with mild fibroatelectatic changes in the right middle lobe remains stable as compared through 2013 and require no further investigation. 2. No acute mediastinal or pleuroparenchymal process appreciated. Electronically Signed by Janusz Leonard MD 01/24/2019 06:32 A
== END ==
LOC: M RAD 10:56
PROVIDERS: ATTEND Internal Medicine Pulmonary Disease
DX: R91.8 Other nonspecific abnormal finding of lung field (principal)

== ENCOUNTER → 2019-03-24 | Outpatient (CLI) | payer OTHER ==
[~2019-03-24] MED LIST changes: -DULO1CAP3; +DULO1CAP6; -OMEP20CA3; +OMEP20CA4; -TRAZ-160 PO; +TRAZ-252 PO
--- NOTE | 2019-03-24 09:13 | REP ---
BILATERAL SCREENING DIGITAL MAMMOGRAM WITH OUT 3D TOMOSYNTHESIS: There are no palpable abnormalities or other breast complaints. The the patient states she had a clinical breast examination February 2019. The the patient states she performs self-breast examinations 12 times per year. The Tyrer-Cuzick Score is: 8.4%. Comparison is ? 06/18/2016. There are no other comparisons available. There are scattered areas of fibroglandular density. There is no dominant mass, micro calcific cluster or architectural distortion that would indicate malignancy. There are benign macrocalcifications, unchanged. There is no change from the prior study. Impression: BIRADS/ACR category 2 mammogram. Benign findings. Recommendation: Routine annual screening mammography. This mammogram was interpreted with the aid of a FDA approved computer-aided detection system. A. Negative mammogram reports should not delay biopsy if a dominant or clinically suspicious mass is present. B. Not all breast cancers are identified by mammography or tomosynthesis. C. Adenosis and dense breasts may obscure an underlying neoplasm. Patient letter M1. Electronically Signed by Emiliano Villela MD 03/24/2019 09:05 A
== END ==
LOC: M WHC 07:53
PROVIDERS: ATTEND Physician Assistant
DX: Z12.31 Encounter for screening mammogram for malignant neoplasm of breast (principal)

== ENCOUNTER → 2019-05-23 | Outpatient (CLI) | payer OTHER ==
[~2019-05-23] MED LIST changes: +OMEP1CAP73; -OMEP20CA4
--- NOTE | 2019-05-23 09:06 | PFTRPT ---
Height: 65.00 Inches Weight: 200.00 Lbs BSA: 1.98 Diagnosis: F17.218 DATE OF PROCEDURE: 05/23/2019 ORDERED BY: Stephan Tabares DO Spirometry: Pre and post bronchodilator study of excellent technical quality. Forced vital capacity normal. FEV1 in proportion. Obstructive index is, therefore, normal. Flow Volume Loop: Expiratory limb of the flow volume loop is normal. No significant bronchodilator response identified. Lung Volumes: Total lung capacity minimally elevated. Residual volume does suggest a degree of air trapping. Diffusing Capacity: Diffusing capacity is normal and remains normal when corrected for alveolar volume. Hemoglobin: Hemoglobin acceptable at 13.5. Airway Mechanics: Airway resistance and conductance are normal. IMPRESSION: Suspect at least a degree of underlying air trapping. Please correlate clinically. MTDD
--- NOTE | 2019-05-25 09:13 | PULFX ---
DATE OF PROCEDURE: 05/23/2019 ORDERED BY: Dr. Tabares Spirometry: Pre and post bronchodilator study of excellent technical quality. Forced vital capacity normal. FEV1 in proportion. Obstructive index is, therefore, normal. Flow Volume Loop: Expiratory limb of the flow volume loop is normal. No significant bronchodilator response is identified. Lung Volumes: Total lung capacity mildly elevated. Residual volume raises the question of air trapping. Diffusing Capacity: Diffusing capacity normal. Hemoglobin: Hemoglobin acceptable at 30.5. Airway Mechanics: Airway resistance and conductance are normal. IMPRESSION: Cannot rule out a degree of air trapping. Please correlate clinically.
== END ==
LOC: M CARPUL 08:25
PROVIDERS: ATTEND Internal Medicine Pulmonary Disease
DX: F17.218 Nicotine dependence, cigarettes, with other nicotine-induced disorders (principal)

== ENCOUNTER → 2019-08-09 | Outpatient (REF) | payer OTHER ==
[~2019-08-09] MED LIST changes: -OMEP1CAP73; +OMEP20CA4
[2019-08-09 16:50] LABS: BASO # 0.1 10^3/uL (0.0-0.2); BASO % 0.5 % (0.0-1.0); C REACTIVE PROTEIN QUANTITATIV 3.28 MG/DL (0.00-0.30); EOS % 0.2 % (0.0-3.0); HEMATOCRIT 48.2 % (36.0-47.0); HEMOGLOBIN 15.5 g/dl (12.0-15.5); LYMPH # 1.2 10^3/uL (1.5-5.0); LYMPH % 11.5 % (24.0-44.0); MEAN CORPUSCULAR HEMOGLOBIN 30.2 pg (27.0-33.0); MEAN CORPUSCULAR HGB CONC 32.2 g/dl (32.0-36.5); MEAN CORPUSCULAR VOLUME 93.8 fl (80.0-96.0); MONO # 0.4 10^3/uL (0.0-0.8); MONO % 3.5 % (0.0-5.0); NEUTROPHILS # 8.7 10^3/uL (1.5-8.5); PLATELET COUNT, AUTOMATED 360 10^3/uL (150-450); RED BLOOD COUNT 5.14 10^6/uL (4.00-5.40); WHITE BLOOD COUNT 10.4 10^3/uL (4.0-10.0)
[2019-08-09 17:15] LABS: ALT/SGPT 36 U/L (12-78); BILIRUBIN,TOTAL 0.4 MG/DL (0.2-1.0); BLOOD UREA NITROGEN 12 MG/DL (7-18); CALCIUM LEVEL 9.4 MG/DL (8.5-10.1); CARBON DIOXIDE LEVEL 28 MEQ/L (21-32); CHLORIDE LEVEL 106 MEQ/L (98-107); CHOLESTEROL LEVEL 224 MG/DL (<200); CHOLESTEROL RISK RATIO 3.612 (<5); CREATININE FOR GFR 0.78 MG/DL (0.55-1.30); GLOMERULAR FILTRATION RATE > 60.0 (>51); GLUCOSE, FASTING 97 MG/DL (70-100); HDL CHOLESTEROL 62 MG/DL (>40); LDL CHOLESTEROL 133 MG/DL (<100); NON-HDL-C 162 MG/DL; POTASSIUM SERUM 5.1 MEQ/L (3.5-5.1); SODIUM LEVEL 140 MEQ/L (136-145); THYROID STIMULATING HORMONE 0.597 uIU/ML (0.358-3.740); TOTAL 25(OH) VITAMIN D 29.4 NG/ML (30.0-100.0); TRIGLYCERIDES LEVEL 146 MG/DL (<150)
[2019-08-09 17:26] LABS: HEMOGLOBIN A1c 5.7 %
[2019-08-11 09:19] LABS: HEPATITIS B SURFACE ANTIBODY NEGATIVE (POSITIVE)
[2019-08-11 09:25] LABS: HEPATITIS B SURFACE ANTIGEN NEGATIVE (NEGATIVE)
== END ==
LOC: M SFHCCLAY 10:14
PROVIDERS: ATTEND Family Medicine
DX: M06.9 Rheumatoid arthritis, unspecified (principal); E78.2 Mixed hyperlipidemia; E55.9 Vitamin D deficiency, unspecified

== ENCOUNTER → 2019-10-20 | Outpatient (REF) | payer OTHER ==
[~2019-10-20] MED LIST changes: +OMEP1CAP73; -OMEP20CA4
[2019-10-20 13:27] LABS: BASO % 0.4 % (0.0-1.0); EOS # 0.1 10^3/uL (0.0-0.5); HEMATOCRIT 39.3 % (36.0-47.0); HEMOGLOBIN 12.5 g/dl (12.0-15.5); LYMPH # 2.5 10^3/uL (1.5-5.0); LYMPH % 30.1 % (24.0-44.0); MEAN CORPUSCULAR HEMOGLOBIN 29.8 pg (27.0-33.0); MEAN CORPUSCULAR HGB CONC 31.8 g/dl (32.0-36.5); MEAN CORPUSCULAR VOLUME 93.8 fl (80.0-96.0); MONO # 0.9 10^3/uL (0.0-0.8); MONO % 10.8 % (0.0-5.0); NEUTROPHILS # 4.7 10^3/uL (1.5-8.5); NEUTROPHILS % 57.6 % (36.0-66.0); PLATELET COUNT, AUTOMATED 320 10^3/uL (150-450); RED BLOOD COUNT 4.19 10^6/uL (4.00-5.40); WHITE BLOOD COUNT 8.2 10^3/uL (4.0-10.0)
[2019-10-20 13:57] LABS: ALBUMIN 3.7 GM/DL (3.2-5.2); ALT/SGPT 28 U/L (12-78); BILIRUBIN,TOTAL 0.2 MG/DL (0.2-1.0); BLOOD UREA NITROGEN 14 MG/DL (7-18); C REACTIVE PROTEIN QUANTITATIV 2.15 MG/DL (0.00-0.30); CALCIUM LEVEL 8.9 MG/DL (8.5-10.1); CARBON DIOXIDE LEVEL 30 MEQ/L (21-32); CHLORIDE LEVEL 107 MEQ/L (98-107); CREATININE FOR GFR 0.67 MG/DL (0.55-1.30); GLOMERULAR FILTRATION RATE > 60.0 (>51); GLUCOSE, FASTING 89 MG/DL (70-100); POTASSIUM SERUM 4.5 MEQ/L (3.5-5.1); SODIUM LEVEL 141 MEQ/L (136-145); TOTAL PROTEIN 6.8 GM/DL (6.4-8.2)
[2019-10-20 14:15] LABS: ERYTHROCYTE SEDIMENTATION RATE 34 mm/hr (0-30)
== END ==
LOC: M SFHCRHEU 10:27
PROVIDERS: ATTEND Internal Medicine
DX: M05.79 Rheumatoid arthritis with rheumatoid factor of multiple sites without organ or systems involvement (principal)

== ENCOUNTER → 2020-01-08 | Outpatient (REF) | payer OTHER | LOC: M LABDRAWC 11:05 | PROVIDERS: ATTEND Internal Medicine | DX: M05.79 Rheumatoid arthritis with rheumatoid factor of multiple sites without organ or systems involvement (principal) ==

== ENCOUNTER → 2020-01-08 | Outpatient (REF) | payer OTHER ==
[2020-01-09 11:29] LABS: BASO # 0.1 10^3/uL (0.0-0.2); BASO % 0.5 % (0.0-1.0); EOS # 0.1 10^3/uL (0.0-0.5); HEMATOCRIT 42.5 % (36.0-47.0); HEMOGLOBIN 13.7 g/dl (12.0-15.5); LYMPH # 3.3 10^3/uL (1.5-5.0); LYMPH % 30.5 % (24.0-44.0); MEAN CORPUSCULAR HEMOGLOBIN 30.4 pg (27.0-33.0); MEAN CORPUSCULAR HGB CONC 32.2 g/dl (32.0-36.5); MEAN CORPUSCULAR VOLUME 94.2 fl (80.0-96.0); MONO # 1.2 10^3/uL (0.0-0.8); MONO % 10.9 % (0.0-5.0); NEUTROPHILS # 6.1 10^3/uL (1.5-8.5); NEUTROPHILS % 56.8 % (36.0-66.0); PLATELET COUNT, AUTOMATED 318 10^3/uL (150-450); RED BLOOD COUNT 4.51 10^6/uL (4.00-5.40); WHITE BLOOD COUNT 10.8 10^3/uL (4.0-10.0)
[2020-01-09 11:45] LABS: ALBUMIN 3.7 GM/DL (3.2-5.2); ALT/SGPT 35 U/L (12-78); BILIRUBIN,TOTAL 0.2 MG/DL (0.2-1.0); BLOOD UREA NITROGEN 18 MG/DL (7-18); CALCIUM LEVEL 9.6 MG/DL (8.5-10.1); CARBON DIOXIDE LEVEL 31 MEQ/L (21-32); CHLORIDE LEVEL 103 MEQ/L (98-107); CHOLESTEROL LEVEL 235 MG/DL (<200); CHOLESTEROL RISK RATIO 4.607 (<5); CREATININE FOR GFR 0.76 MG/DL (0.55-1.30); GLOMERULAR FILTRATION RATE > 60.0 (>51); GLUCOSE, FASTING 77 MG/DL (70-100); HDL CHOLESTEROL 51 MG/DL (>40); LDL CHOLESTEROL 121 MG/DL (<100); NON-HDL-C 184 MG/DL; POTASSIUM SERUM 5.2 MEQ/L (3.5-5.1); SODIUM LEVEL 138 MEQ/L (136-145); TOTAL 25(OH) VITAMIN D 46.9 NG/ML (30.0-100.0); TOTAL PROTEIN 7.2 GM/DL (6.4-8.2); TRIGLYCERIDES LEVEL 317 MG/DL (<150)
[2020-01-09 11:48] LABS: HEMOGLOBIN A1c 5.7 %
== END ==
LOC: M SFHCCLAY 15:00
PROVIDERS: ATTEND Physician Assistant
DX: E78.2 Mixed hyperlipidemia (principal); E55.9 Vitamin D deficiency, unspecified; R73.03 Prediabetes

== ENCOUNTER → 2020-03-22 | Outpatient (CLI) | payer OTHER ==
[2020-03-22 12:00] LABS: HEMATOCRIT 42.4 % (36.0-47.0); HEMOGLOBIN 13.7 g/dl (12.0-15.5); MEAN CORPUSCULAR HEMOGLOBIN 30.5 pg (27.0-33.0); MEAN CORPUSCULAR HGB CONC 32.3 g/dl (32.0-36.5); MEAN CORPUSCULAR VOLUME 94.4 fl (80.0-96.0); PLATELET COUNT, AUTOMATED 282 10^3/uL (150-450); RED BLOOD COUNT 4.49 10^6/uL (4.00-5.40); WHITE BLOOD COUNT 8.8 10^3/uL (4.0-10.0)
[2020-03-22 12:31] LABS: ERYTHROCYTE SEDIMENTATION RATE 17 mm/hr (0-30)
[2020-03-22 12:43] LABS: ALBUMIN 3.7 GM/DL (3.2-5.2); ALT/SGPT 32 U/L (12-78); BILIRUBIN,TOTAL 0.3 MG/DL (0.2-1.0); BLOOD UREA NITROGEN 11 MG/DL (7-18); C REACTIVE PROTEIN QUANTITATIV 1.19 MG/DL (0.00-0.30); CALCIUM LEVEL 9.4 MG/DL (8.5-10.1); CARBON DIOXIDE LEVEL 31 MEQ/L (21-32); CHLORIDE LEVEL 105 MEQ/L (98-107); CREATININE FOR GFR 0.63 MG/DL (0.55-1.30); GLOMERULAR FILTRATION RATE > 60.0 (>51); GLUCOSE, FASTING 90 MG/DL (70-100); POTASSIUM SERUM 4.7 MEQ/L (3.5-5.1); SODIUM LEVEL 138 MEQ/L (136-145); TOTAL PROTEIN 7.2 GM/DL (6.4-8.2)
== END ==
LOC: M PLALAB 10:05
PROVIDERS: ATTEND Internal Medicine Rheumatology
DX: M05.79 Rheumatoid arthritis with rheumatoid factor of multiple sites without organ or systems involvement (principal)

== ENCOUNTER → 2020-06-24 | Outpatient (REF) | payer OTHER ==
[~2020-06-24] MED LIST changes: -NABU-126; +NABU-51
[2020-06-24 17:06] LABS: ALBUMIN 3.8 GM/DL (3.2-5.2); ALT/SGPT 22 U/L (12-78); BILIRUBIN,TOTAL 0.4 MG/DL (0.2-1.0); BLOOD UREA NITROGEN 13 MG/DL (7-18); C REACTIVE PROTEIN QUANTITATIV 1.07 MG/DL (0.00-0.30); CALCIUM LEVEL 9.5 MG/DL (8.5-10.1); CARBON DIOXIDE LEVEL 32 MEQ/L (21-32); CHLORIDE LEVEL 107 MEQ/L (98-107); CREATININE FOR GFR 0.84 MG/DL (0.55-1.30); GLOMERULAR FILTRATION RATE > 60.0 (>51); GLUCOSE, FASTING 93 MG/DL (70-100); POTASSIUM SERUM 5.1 MEQ/L (3.5-5.1); SODIUM LEVEL 139 MEQ/L (136-145); TOTAL PROTEIN 7.3 GM/DL (6.4-8.2)
[2020-06-24 17:12] LABS: BASO % 0.5 % (0.0-1.0); EOS # 0.1 10^3/uL (0.0-0.5); EOS % 0.8 % (0.0-3.0); HEMATOCRIT 43.9 % (36.0-47.0); HEMOGLOBIN 14.2 g/dl (12.0-15.5); LYMPH % 33.7 % (24.0-44.0); MEAN CORPUSCULAR HEMOGLOBIN 30.5 pg (27.0-33.0); MEAN CORPUSCULAR HGB CONC 32.3 g/dl (32.0-36.5); MEAN CORPUSCULAR VOLUME 94.2 fl (80.0-96.0); MONO # 0.9 10^3/uL (0.0-0.8); MONO % 9.8 % (0.0-5.0); NEUTROPHILS # 4.9 10^3/uL (1.5-8.5); NEUTROPHILS % 54.9 % (36.0-66.0); PLATELET COUNT, AUTOMATED 303 10^3/uL (150-450); RED BLOOD COUNT 4.66 10^6/uL (4.00-5.40); WHITE BLOOD COUNT 8.8 10^3/uL (4.0-10.0)
[2020-06-24 17:52] LABS: ERYTHROCYTE SEDIMENTATION RATE 18 mm/hr (0-30)
== END ==
LOC: M LABDRAWC 16:01
PROVIDERS: ATTEND Internal Medicine
DX: M05.79 Rheumatoid arthritis with rheumatoid factor of multiple sites without organ or systems involvement (principal)

== ENCOUNTER → 2020-10-08 | Outpatient (REF) | payer OTHER ==
[2020-10-08 14:41] LABS: BASO # 0.1 10^3/uL (0.0-0.2); BASO % 0.7 % (0.0-1.0); EOS # 0.1 10^3/uL (0.0-0.5); HEMATOCRIT 42.2 % (36.0-47.0); HEMOGLOBIN 13.1 g/dl (12.0-15.5); LYMPH % 33.6 % (24.0-44.0); MEAN CORPUSCULAR VOLUME 96.6 fl (80.0-96.0); MONO # 1.4 10^3/uL (0.0-0.8); MONO % 11.7 % (0.0-5.0); NEUTROPHILS # 6.3 10^3/uL (1.5-8.5); NEUTROPHILS % 52.7 % (36.0-66.0); PLATELET COUNT, AUTOMATED 319 10^3/uL (150-450); RED BLOOD COUNT 4.37 10^6/uL (4.00-5.40); WHITE BLOOD COUNT 11.9 10^3/uL (4.0-10.0)
[2020-10-08 14:59] LABS: ERYTHROCYTE SEDIMENTATION RATE 33 mm/hr (0-30)
[2020-10-08 16:16] LABS: ALBUMIN 4.1 GM/DL (3.2-5.2); ALT/SGPT 41 U/L (12-78); BILIRUBIN,TOTAL 0.3 MG/DL (0.2-1.0); BLOOD UREA NITROGEN 17 MG/DL (7-18); C REACTIVE PROTEIN QUANTITATIV 3.51 MG/DL (0.00-0.30); CALCIUM LEVEL 9.5 MG/DL (8.5-10.1); CARBON DIOXIDE LEVEL 30 MEQ/L (21-32); CHLORIDE LEVEL 105 MEQ/L (98-107); CREATININE FOR GFR 0.98 MG/DL (0.55-1.30); GLOMERULAR FILTRATION RATE > 60.0 (>51); GLUCOSE, FASTING 101 MG/DL (70-100); POTASSIUM SERUM 5.3 MEQ/L (3.5-5.1); SODIUM LEVEL 141 MEQ/L (136-145); TOTAL PROTEIN 7.6 GM/DL (6.4-8.2)
== END ==
LOC: M PLALAB 13:34
PROVIDERS: ATTEND Internal Medicine
DX: M05.79 Rheumatoid arthritis with rheumatoid factor of multiple sites without organ or systems involvement (principal)

== ENCOUNTER → 2020-10-18 | Outpatient (REF) | payer OTHER ==
[2020-10-18 13:43] LABS: HEPATITIS B SURFACE ANTIGEN NEGATIVE (NEGATIVE); HEPATITIS C VIRUS ABY INDEX < 0.0 INDEX (<0.8)
[2020-10-22 12:08] LABS: HEPATITIS B CORE ANTIBODY IGG Negative (Negative)
== END ==
LOC: M SFHCRHEU 08:33
PROVIDERS: ATTEND Internal Medicine
DX: M05.79 Rheumatoid arthritis with rheumatoid factor of multiple sites without organ or systems involvement (principal)

== ENCOUNTER → 2020-10-23 | Outpatient (REF) | payer OTHER | LOC: M SFHCCLAY 13:59 | PROVIDERS: ATTEND Physician Assistant | DX: J02.9 Acute pharyngitis, unspecified (principal); J01.00 Acute maxillary sinusitis, unspecified ==

== ENCOUNTER → 2020-11-05 | Outpatient (CLI) | payer OTHER ==
--- NOTE | 2020-11-06 04:10 | REP ---
INDICATION: NECK PAIN,RA,ASSESS FOR OA VERSUS RA COMPARISON: None. TECHNIQUE: AP, lateral, flexion/extension, and open-mouth views. FINDINGS: Advanced multilevel degenerative disc osteophyte complexes are appreciated primarily involving C4 through C7. Findings include osteophytosis, endplate sclerosis, disc space narrowing and facet arthropathy. There is 2 mm of chronic anterolisthesis at the C3-4 level noted on neutral and flexion views and improved on extension. Spinous processes are intact. Open mouth view demonstrates relatively normal C1-C2 articulation and odontoid process. IMPRESSION: Advanced multilevel degenerative spondylosis. <Electronically signed by Janusz Leonard > 11/06/20 [id number]
== END ==
LOC: M CLY 15:35
PROVIDERS: ATTEND Internal Medicine
DX: M54.2 Cervicalgia (principal)

== ENCOUNTER → 2020-11-18 | Outpatient (REF) | payer OTHER ==
[2020-11-18 11:55] LABS: BASO % 0.5 % (0.0-1.0); EOS # 0.1 10^3/uL (0.0-0.5); EOS % 1.1 % (0.0-3.0); HEMATOCRIT 44.3 % (36.0-47.0); HEMOGLOBIN 14.2 g/dl (12.0-15.5); LYMPH # 2.1 10^3/uL (1.5-5.0); LYMPH % 26.8 % (24.0-44.0); MEAN CORPUSCULAR HEMOGLOBIN 30.1 pg (27.0-33.0); MEAN CORPUSCULAR HGB CONC 32.1 g/dl (32.0-36.5); MEAN CORPUSCULAR VOLUME 94.1 fl (80.0-96.0); MONO # 0.6 10^3/uL (0.0-0.8); MONO % 7.5 % (2.0-8.0); NEUTROPHILS % 63.8 % (36.0-66.0); PLATELET COUNT, AUTOMATED 360 10^3/uL (150-450); RED BLOOD COUNT 4.71 10^6/uL (4.00-5.40); WHITE BLOOD COUNT 7.9 10^3/uL (4.0-10.0)
[2020-11-18 12:41] LABS: ALBUMIN 3.6 GM/DL (3.2-5.2); ALT/SGPT 25 U/L (12-78); BILIRUBIN,TOTAL 0.1 MG/DL (0.2-1.0); BLOOD UREA NITROGEN 15 MG/DL (7-18); C REACTIVE PROTEIN QUANTITATIV 1.47 MG/DL (0.00-0.30); CALCIUM LEVEL 9.9 MG/DL (8.5-10.1); CARBON DIOXIDE LEVEL 33 MEQ/L (21-32); CHLORIDE LEVEL 103 MEQ/L (98-107); CREATININE FOR GFR 0.86 MG/DL (0.55-1.30); GLOMERULAR FILTRATION RATE > 60.0 (>51); GLUCOSE, FASTING 73 MG/DL (70-100); POTASSIUM SERUM 4.4 MEQ/L (3.5-5.1); SODIUM LEVEL 140 MEQ/L (136-145); TOTAL PROTEIN 7.4 GM/DL (6.4-8.2)
[2020-11-18 13:11] LABS: TOTAL 25(OH) VITAMIN D 61.5 NG/ML (30.0-100.0)
[2020-11-18 13:13] LABS: HEPATITIS B SURFACE ANTIGEN NEGATIVE (NEGATIVE); HEPATITIS C VIRUS ABY INDEX < 0.0 INDEX (<0.8)
[2020-11-18 13:25] LABS: HEMOGLOBIN A1c 5.4 %
== END ==
LOC: M SFHCCLAY 08:50
PROVIDERS: ATTEND Physician Assistant
DX: E78.2 Mixed hyperlipidemia (principal); M05.79 Rheumatoid arthritis with rheumatoid factor of multiple sites without organ or systems involvement; E55.9 Vitamin D deficiency, unspecified

== ENCOUNTER → 2020-11-26 | Outpatient (CLI) | payer OTHER ==
--- NOTE | 2020-11-26 11:57 | REP ---
INDICATION: ENCOUNTER FOR SCREENING FOR LUNG CANCER COMPARISON: 01/23/2019 TECHNIQUE: Axial noncontrast images from the thoracic inlet to the upper abdomen using low-dose lung screening technique (LDCT). FINDINGS: Lung garcia demonstrate mild emphysematous changes along with scattered scarring and chronic stable nodular densities unchanged compared with 01/23/2019. No new area of consolidation, suspicious nodule or mass lesion appreciated. No effusion. No pneumothorax. Tracheobronchial tree is patent. IMPRESSION: Lung-RADS category 2. Stable chronic findings. Management recommendations include annual low-dose CT evaluation. <Electronically signed by Janusz Leonard > 11/26/20 [id number]
== END ==
LOC: M RAD 11:13
PROVIDERS: ATTEND Physician Assistant
DX: Z12.2 Encounter for screening for malignant neoplasm of respiratory organs (principal)

== ENCOUNTER → 2020-11-26 | Outpatient (CLI) | payer OTHER ==
--- NOTE | 2020-11-26 13:49 | REPMRS ---
Patient History The patient states she has not had a clinical breast exam in over a year. Family history of ovarian cancer under age 50 in mother, ovarian cancer under age 50 in sister, ovarian cancer under age 50 in sister. 3D TOMOSYNTHESIS WAS PERFORMED. The [facility] lifetime risk for breast cancer is 7.9%. Volpara breast density b. Digital Woman Screen Mammo: November 26, 2020 - Exam #: [id number] Bilateral CC and MLO view(s) were taken. Technologist: RT Kelvin Prior study comparison: March 24, 2019, bilateral digital woman screen mammo performed at [facility]. June 18, 2016, digital woman screen mammo performed at [facility]. FINDINGS: There are scattered fibroglandular densities. There has been no change in the appearance of the mammogram from the prior studies. There is a mild amount of residual fibroglandular tissue which is fairly symmetric. There is no interval development of dominant mass, architectural distortion, or clustered microcalcification suggestive of malignancy. Large coarse benign appearing calcifications are present. No significant changes when compared with prior studies. Assessment: BI-RADS/ACR category 1 mammogram. Negative Mammogram. Recommendation Routine screening mammogram in 1 year (for women over age 40). This mammogram was interpreted with the aid of an FDA-approved computer-aided dectection system. Electronically Signed By: Emiliano Joe MD 11/26/20 [id number]
--- NOTE | 2020-11-27 09:56 | DEXAMM ---
INDICATION: M05.79 RHEUMATOID ARTHRITIS. COMPARISON: 05/09/2018. TECHNIQUE: Bone density was measured using dual-energy x-ray absorptiometry (DEXA). FINDINGS: AP SPINE L1-L4 BMD 0.914 g/cm2 Young Adult T-Score -2.3 Age Matched Z-Score -1.4. LT FEMUR, TOTAL BMD 0.816 g/cm2 Young Adult T-Score -1.5 Age Matched Z-Score -0.8. LT NECK BMD 0.795 g/cm2 Young Adult T-Score -1.7 Age Matched Z-Score -0.7. RT FEMUR, TOTAL BMD 0.814 g/cm2 Young Adult T-Score -1.5 Age Matched Z-Score -0.9. RT NECK BMD 0.818 g/cm2 Young Adult T-Score -1.6 Age Matched Z-Score -0.5. IMPRESSION: There is low bone density of the spine. There is low bone density of the left hip. There is low bone density of the right hip. The density of the spine has decreased 3.3% since the initial exam on 05/09/2018. The density of the left hip has decreased 3.3% since initial exam on 05/09/2018. The density of the right hip has decreased 0.5% since the initial exam on 05/09/2018. FOLLOW-UP: Recommendation for the next bone density exam: 2 years. <Electronically signed by Emiliano Joe > 11/27/20 [id number]
== END ==
LOC: M WHC 12:30
PROVIDERS: ATTEND Physician Assistant
DX: Z12.31 Encounter for screening mammogram for malignant neoplasm of breast (principal); M05.79 Rheumatoid arthritis with rheumatoid factor of multiple sites without organ or systems involvement; M85.9 Disorder of bone density and structure, unspecified; Z80.41 Family history of malignant neoplasm of ovary

== ENCOUNTER → 2021-02-14 | Outpatient (CLI) | payer OTHER ==
[~2021-02-14] MED LIST changes: -NABU-51; +NABU-71
--- NOTE | 2021-02-14 12:35 | REP ---
INDICATION: CERVICAL RADICULOPATHY. COMPARISON: Comparison MRI study of the cervical spine is from December 24, 2016.. TECHNIQUE: Sagittal and axial T1 and T2-weighted scans are acquired in the usual fashion with and without fat saturation. Sequences include spin echo, turbo spin-echo, and STIR imaging sequences. FINDINGS: There is reversal of the normal cervical lordosis with with straightening. Vertebral body heights are preserved. Alignment is otherwise normal. Cervical cord is normal in course, caliber, and signal intensity on T1 and T2 weighted scans. Craniocervical junction is unremarkable. Axial and sagittal images at C2-C3 show minimal central disc bulging. At C3-C4, there is mild disc space narrowing. The central disc bulging is less prominent than on the prior study. At C4-C5 there is degenerative disc narrowing and anterior osteophyte formation. This is unchanged. There is diffuse posterior disc bulging. Mild bilateral uncovertebral spurring is seen right more so than left. This is unchanged with a mild right foraminal narrowing. At C5-C6, there is diffuse disc bulging and posterior osteophytic ridging. Bilateral uncovertebral spurring and neural foraminal narrowing is present at C5-6. This appears unchanged from the December 24, 2016 study. Canal size is borderline at C5-C6. Midline AP dimension of the thecal sac is 8.7 mm. The C6-7 level shows disc narrowing and diffuse disc bulging. Posterior osteophytic ridging and bilateral uncovertebral spurring are present. There is left-sided neural foraminal narrowing unchanged from the prior study. At C7-T1, there is minimal disc bulging. There is a degenerative 2 mm spondylolisthesis of C7 anterior the with respect to T1 unchanged. IMPRESSION: Diffuse degenerative spondylosis changes. Multilevel diffuse disc bulging. Multilevel neural foraminal narrowing as above. Findings are felt to be unchanged from the 2017 prior study <Electronically signed by Raul Ramon > 02/14/21 [id number]
== END ==
LOC: M PLARAD 11:02
PROVIDERS: ATTEND Nurse Practitioner Family
DX: M50.11 Cervical disc disorder with radiculopathy, high cervical region (principal); M47.812 Spondylosis without myelopathy or radiculopathy, cervical region; M50.121 Cervical disc disorder at C4-C5 level with radiculopathy; M50.122 Cervical disc disorder at C5-C6 level with radiculopathy; M50.123 Cervical disc disorder at C6-C7 level with radiculopathy; M50.13 Cervical disc disorder with radiculopathy, cervicothoracic region

== ENCOUNTER → 2021-03-20 | Outpatient (REF) | payer OTHER ==
[2021-03-20 16:55] LABS: BASO % 0.6 % (0.0-1.0); EOS # 0.1 10^3/uL (0.0-0.5); HEMATOCRIT 40.2 % (36.0-47.0); HEMOGLOBIN 12.8 g/dl (12.0-15.5); LYMPH # 1.9 10^3/uL (1.5-5.0); LYMPH % 30.6 % (24.0-44.0); MEAN CORPUSCULAR HEMOGLOBIN 30.8 pg (27.0-33.0); MEAN CORPUSCULAR HGB CONC 31.8 g/dl (32.0-36.5); MEAN CORPUSCULAR VOLUME 96.6 fl (80.0-96.0); MONO # 0.7 10^3/uL (0.0-0.8); NEUTROPHILS # 3.5 10^3/uL (1.5-8.5); NEUTROPHILS % 56.6 % (36.0-66.0); PLATELET COUNT, AUTOMATED 316 10^3/uL (150-450); RED BLOOD COUNT 4.16 10^6/uL (4.00-5.40); WHITE BLOOD COUNT 6.2 10^3/uL (4.0-10.0)
[2021-03-20 16:59] LABS: ALBUMIN 3.7 GM/DL (3.2-5.2); ALT/SGPT 33 U/L (12-78); BILIRUBIN,TOTAL 0.3 MG/DL (0.2-1.0); BLOOD UREA NITROGEN 15 MG/DL (7-18); C REACTIVE PROTEIN QUANTITATIV 2.62 MG/DL (0.00-0.30); CALCIUM LEVEL 9.3 MG/DL (8.5-10.1); CARBON DIOXIDE LEVEL 29 MEQ/L (21-32); CHLORIDE LEVEL 109 MEQ/L (98-107); CREATININE FOR GFR 0.82 MG/DL (0.55-1.30); GLOMERULAR FILTRATION RATE > 60.0 (>51); GLUCOSE, FASTING 59 MG/DL (70-100); POTASSIUM SERUM 4.5 MEQ/L (3.5-5.1); SODIUM LEVEL 142 MEQ/L (136-145); TOTAL PROTEIN 7.2 GM/DL (6.4-8.2)
[2021-03-20 17:29] LABS: ERYTHROCYTE SEDIMENTATION RATE 22 mm/hr (0-30)
== END ==
LOC: M SFHCCAPE 08:43
PROVIDERS: ATTEND Internal Medicine Rheumatology
DX: M05.79 Rheumatoid arthritis with rheumatoid factor of multiple sites without organ or systems involvement (principal)

== ENCOUNTER → 2021-08-04 | Outpatient (REF) | payer OTHER | LOC: M SFHCRHEU 11:03 | PROVIDERS: ATTEND Internal Medicine Rheumatology | DX: M05.79 Rheumatoid arthritis with rheumatoid factor of multiple sites without organ or systems involvement (principal); Z53.9 Procedure and treatment not carried out, unspecified reason ==

== ENCOUNTER → 2021-08-05 | Outpatient (REF) | payer OTHER ==
[2021-08-05 16:11] LABS: BASO % 0.6 % (0.0-1.0); EOS # 0.1 10^3/uL (0.0-0.5); EOS % 0.8 % (0.0-3.0); HEMATOCRIT 40.1 % (36.0-47.0); LYMPH # 1.7 10^3/uL (1.5-5.0); MEAN CORPUSCULAR HEMOGLOBIN 30.9 pg (27.0-33.0); MEAN CORPUSCULAR HGB CONC 32.4 g/dl (32.0-36.5); MEAN CORPUSCULAR VOLUME 95.2 fl (80.0-96.0); MONO # 0.8 10^3/uL (0.0-0.8); MONO % 11.1 % (2.0-8.0); NEUTROPHILS # 4.6 10^3/uL (1.5-8.5); NEUTROPHILS % 63.4 % (36.0-66.0); PLATELET COUNT, AUTOMATED 312 10^3/uL (150-450); RED BLOOD COUNT 4.21 10^6/uL (4.00-5.40); WHITE BLOOD COUNT 7.2 10^3/uL (4.0-10.0)
[2021-08-05 16:37] LABS: ALBUMIN 3.4 GM/DL (3.2-5.2); ALT/SGPT 25 U/L (12-78); BILIRUBIN,TOTAL 0.2 MG/DL (0.2-1.0); BLOOD UREA NITROGEN 18 MG/DL (7-18); CALCIUM LEVEL 9.1 MG/DL (8.5-10.1); CARBON DIOXIDE LEVEL 31 MEQ/L (21-32); CHLORIDE LEVEL 108 MEQ/L (98-107); CHOLESTEROL LEVEL 218 MG/DL (<200); CHOLESTEROL RISK RATIO 3.303 (<5); CREATININE FOR GFR 0.71 MG/DL (0.55-1.30); GLOMERULAR FILTRATION RATE > 60.0 (>51); GLUCOSE, FASTING 75 MG/DL (70-100); HDL CHOLESTEROL 66 MG/DL (>40); LDL CHOLESTEROL 131 MG/DL (<100); NON-HDL-C 152 MG/DL; POTASSIUM SERUM 4.7 MEQ/L (3.5-5.1); SODIUM LEVEL 141 MEQ/L (136-145); TOTAL PROTEIN 6.9 GM/DL (6.4-8.2); TRIGLYCERIDES LEVEL 103 MG/DL (<150)
[2021-08-05 17:15] LABS: TOTAL 25(OH) VITAMIN D 46.1 NG/ML (30.0-100.0)
[2021-08-05 17:16] LABS: VITAMIN B12 LEVEL 427 PG/ML
[2021-08-05 19:49] LABS: HEMOGLOBIN A1c 5.5 %
== END ==
LOC: M SFHCCAPE 07:26
PROVIDERS: ATTEND Physician Assistant
DX: F32.2 Major depressive disorder, single episode, severe without psychotic features (principal); E55.9 Vitamin D deficiency, unspecified; R73.03 Prediabetes; M05.79 Rheumatoid arthritis with rheumatoid factor of multiple sites without organ or systems involvement

== ENCOUNTER → 2021-10-02 | Outpatient (CLI) | payer OTHER ==
[~2021-10-02] MED LIST changes: +CARI1TAB7 PO; -FOLI1TAB11; +FOLI1TAB11 PO; +PREG200C PO; +[UNRECOGNIZED DRUG - CODE] PO
== END ==
LOC: M LABSMTC 09:58
PROVIDERS: ATTEND Anesthesiology
DX: Z01.812 Encounter for preprocedural laboratory examination (principal); Z20.822 Contact with and (suspected) exposure to COVID-19

== ENCOUNTER 2021-10-07 12:52 | Day surgery (SDC) | payer OTHER ==
[~2021-10-07] VITALS: Ht 165.1 cm; Wt 80.7 kg
[~2021-10-07 12:52] MED LIST changes: +NS 1,000 ML IV ONE
[2021-10-07] MEDS ORDERED: LIDOCAINE 2% 100MG/5ML SDV (FOR ANES.) As Ordered ONE (15:48)
[2021-10-07] MEDS ORDERED: propofoL 200 MG/20 ML VIAL As Ordered ONE ×3 (15:48→16:31)
[2021-10-07 17:00] VITALS: BP 113/87
== END 2021-10-07 17:00 | disposition home or self-care (01) ==
LOC: M OPP 12:52
PROVIDERS: ATTEND Surgery
DX: Z12.11 Encounter for screening for malignant neoplasm of colon (principal); Z86.010 Personal history of colon polyps; K57.30 Diverticulosis of large intestine without perforation or abscess without bleeding; K62.1 Rectal polyp; K63.5 Polyp of colon; Z79.899 Other long term (current) drug therapy; F17.210 Nicotine dependence, cigarettes, uncomplicated

== ENCOUNTER → 2021-11-05 | Outpatient (REF) | payer OTHER ==
[~2021-11-05] MED LIST changes: -NS 1,000 ML IV ONE
[2021-11-05 17:58] LABS: BASO % 0.5 % (0.0-1.0); EOS # 0.1 10^3/uL (0.0-0.5); EOS % 0.7 % (0.0-3.0); HEMATOCRIT 42.4 % (36.0-47.0); HEMOGLOBIN 13.4 g/dl (12.0-15.5); LYMPH # 2.7 10^3/uL (1.5-5.0); LYMPH % 30.6 % (24.0-44.0); MEAN CORPUSCULAR HEMOGLOBIN 30.1 pg (27.0-33.0); MEAN CORPUSCULAR HGB CONC 31.6 g/dl (32.0-36.5); MEAN CORPUSCULAR VOLUME 95.3 fl (80.0-96.0); MONO # 0.8 10^3/uL (0.0-0.8); MONO % 9.6 % (2.0-8.0); NEUTROPHILS # 5.1 10^3/uL (1.5-8.5); NEUTROPHILS % 58.3 % (36.0-66.0); PLATELET COUNT, AUTOMATED 335 10^3/uL (150-450); RED BLOOD COUNT 4.45 10^6/uL (4.00-5.40); WHITE BLOOD COUNT 8.8 10^3/uL (4.0-10.0)
[2021-11-05 18:11] LABS: ALBUMIN 3.9 GM/DL (3.2-5.2); ALT/SGPT 31 U/L (12-78); BILIRUBIN,TOTAL 0.3 MG/DL (0.2-1.0); BLOOD UREA NITROGEN 13 MG/DL (7-18); C REACTIVE PROTEIN QUANTITATIV 1.43 MG/DL (0.00-0.30); CALCIUM LEVEL 9.4 MG/DL (8.5-10.1); CARBON DIOXIDE LEVEL 30 MEQ/L (21-32); CHLORIDE LEVEL 107 MEQ/L (98-107); CREATININE FOR GFR 0.76 MG/DL (0.55-1.30); GLOMERULAR FILTRATION RATE > 60.0 (>51); GLUCOSE, FASTING 96 MG/DL (70-100); SODIUM LEVEL 144 MEQ/L (136-145); TOTAL PROTEIN 7.5 GM/DL (6.4-8.2)
[2021-11-05 20:18] LABS: ERYTHROCYTE SEDIMENTATION RATE 16 mm/hr (0-30)
== END ==
LOC: M SFHCRHEU 11:46
PROVIDERS: ATTEND Internal Medicine Rheumatology
DX: M05.79 Rheumatoid arthritis with rheumatoid factor of multiple sites without organ or systems involvement (principal); Z79.899 Other long term (current) drug therapy; M89.49 Other hypertrophic osteoarthropathy, multiple sites; Z72.0 Tobacco use

== ENCOUNTER → 2022-03-05 | Outpatient (REF) | payer OTHER ==
[2022-03-05 16:06] LABS: BASO # 0.1 10^3/uL (0.0-0.2); BASO % 0.6 % (0.0-1.0); EOS # 0.1 10^3/uL (0.0-0.5); EOS % 0.6 % (0.0-3.0); HEMATOCRIT 41.1 % (36.0-47.0); HEMOGLOBIN 13.8 g/dl (12.0-15.5); LYMPH # 2.2 10^3/uL (1.5-5.0); LYMPH % 20.4 % (24.0-44.0); MEAN CORPUSCULAR HEMOGLOBIN 31.4 pg (27.0-33.0); MEAN CORPUSCULAR HGB CONC 33.6 g/dl (32.0-36.5); MEAN CORPUSCULAR VOLUME 93.4 fl (80.0-96.0); MONO % 14.5 % (2.0-8.0); NEUTROPHILS # 6.9 10^3/uL (1.5-8.5); NEUTROPHILS % 63.5 % (36.0-66.0); PLATELET COUNT, AUTOMATED 378 10^3/uL (150-450); WHITE BLOOD COUNT 10.8 10^3/uL (4.0-10.0)
[2022-03-05 16:46] LABS: ALT/SGPT 24 U/L (12-78); BILIRUBIN,TOTAL 0.4 MG/DL (0.2-1.0); BLOOD UREA NITROGEN 8 MG/DL (7-18); CALCIUM LEVEL 9.1 MG/DL (8.5-10.1); CARBON DIOXIDE LEVEL 27 MEQ/L (21-32); CHLORIDE LEVEL 105 MEQ/L (98-107); CREATININE FOR GFR 0.73 MG/DL (0.55-1.30); GLOMERULAR FILTRATION RATE > 60.0 (>51); GLUCOSE, FASTING 75 MG/DL (70-100); SODIUM LEVEL 137 MEQ/L (136-145); TOTAL PROTEIN 7.5 GM/DL (6.4-8.2)
[2022-03-05 17:50] LABS: MONO # 1.6 10^3/uL (0.0-0.8)
[2022-03-05 19:10] LABS: ERYTHROCYTE SEDIMENTATION RATE 21 mm/hr (0-30)
== END ==
LOC: M SFHCCAPE 09:45
PROVIDERS: ATTEND Internal Medicine Rheumatology
DX: M05.79 Rheumatoid arthritis with rheumatoid factor of multiple sites without organ or systems involvement (principal); Z79.899 Other long term (current) drug therapy; M89.49 Other hypertrophic osteoarthropathy, multiple sites; Z72.0 Tobacco use

== ENCOUNTER → 2022-04-15 | Outpatient (REF) | payer OTHER ==
[2022-04-15 18:14] LABS: BASO % 0.5 % (0.0-1.0); EOS # 0.1 10^3/uL (0.0-0.5); EOS % 0.8 % (0.0-3.0); HEMATOCRIT 42.1 % (36.0-47.0); HEMOGLOBIN 13.8 g/dl (12.0-15.5); LYMPH # 2.6 10^3/uL (1.5-5.0); LYMPH % 33.9 % (24.0-44.0); MEAN CORPUSCULAR HEMOGLOBIN 30.8 pg (27.0-33.0); MEAN CORPUSCULAR HGB CONC 32.8 g/dl (32.0-36.5); MONO # 0.6 10^3/uL (0.0-0.8); NEUTROPHILS # 4.4 10^3/uL (1.5-8.5); NEUTROPHILS % 56.5 % (36.0-66.0); PLATELET COUNT, AUTOMATED 352 10^3/uL (150-450); RED BLOOD COUNT 4.48 10^6/uL (4.00-5.40); WHITE BLOOD COUNT 7.8 10^3/uL (4.0-10.0)
[2022-04-15 18:54] LABS: ERYTHROCYTE SEDIMENTATION RATE 16 mm/hr (0-30)
[2022-04-15 19:03] LABS: ALBUMIN 3.8 GM/DL (3.2-5.2); ALT/SGPT 30 U/L (12-78); BILIRUBIN,TOTAL 0.4 MG/DL (0.2-1.0); BLOOD UREA NITROGEN 11 MG/DL (7-18); CALCIUM LEVEL 9.5 MG/DL (8.5-10.1); CARBON DIOXIDE LEVEL 26 MEQ/L (21-32); CHLORIDE LEVEL 109 MEQ/L (98-107); CREATININE FOR GFR 0.78 MG/DL (0.55-1.30); GLOMERULAR FILTRATION RATE > 60.0 (>51); GLUCOSE, FASTING 94 MG/DL (70-100); POTASSIUM SERUM 4.2 MEQ/L (3.5-5.1); SODIUM LEVEL 140 MEQ/L (136-145); TOTAL PROTEIN 7.2 GM/DL (6.4-8.2)
== END ==
LOC: M SFHCCAPE 10:44
PROVIDERS: ATTEND Internal Medicine Rheumatology
DX: M05.79 Rheumatoid arthritis with rheumatoid factor of multiple sites without organ or systems involvement (principal); Z79.899 Other long term (current) drug therapy; M89.49 Other hypertrophic osteoarthropathy, multiple sites; Z72.0 Tobacco use

== ENCOUNTER → 2022-08-11 | Outpatient (CLI) | payer OTHER ==
[~2022-08-11] MED LIST changes: +E-Z-GAS II EFFERVESCENT PACKET (SODIUM BICARB./CITRIC ACID/SIMETHICONE) As Ordered ONE; +E-Z-HD 98% w/w 340GM SUSP BTL As Ordered ONE; +E-Z-PAQUE 96% w/w SUSP 176GM BTL As Ordered ONE
== END ==
LOC: M RAD 07:57
PROVIDERS: ATTEND Physician Assistant
DX: R10.12 Left upper quadrant pain (principal); K44.9 Diaphragmatic hernia without obstruction or gangrene; K31.89 Other diseases of stomach and duodenum

== ENCOUNTER → 2022-08-13 | Outpatient (REF) | payer OTHER ==
[~2022-08-13] MED LIST changes: -E-Z-GAS II EFFERVESCENT PACKET (SODIUM BICARB./CITRIC ACID/SIMETHICONE) As Ordered ONE; -E-Z-HD 98% w/w 340GM SUSP BTL As Ordered ONE; -E-Z-PAQUE 96% w/w SUSP 176GM BTL As Ordered ONE
[2022-08-13 21:57] LABS: CHOLESTEROL RISK RATIO 2.94 (<5); HDL CHOLESTEROL 67.8 MG/DL (>40)
[2022-08-13 22:13] LABS: FOLATE 21.6 NG/ML (>5.4)
== END ==
LOC: M SFHCCAPE 07:44
PROVIDERS: ATTEND Physician Assistant
DX: E78.2 Mixed hyperlipidemia (principal); E55.9 Vitamin D deficiency, unspecified; R73.03 Prediabetes

== ENCOUNTER → 2022-09-16 | Outpatient (REF) | payer OTHER ==
[2022-09-17 21:36] LABS: GC DNA AMPLIFICATION NEGATIVE (NEGATIVE)
== END ==
LOC: M SFHCCAPE 15:16
PROVIDERS: ATTEND Physician Assistant
DX: N89.8 Other specified noninflammatory disorders of vagina (principal)

== ENCOUNTER → 2022-10-08 | Outpatient (REF) | payer OTHER ==
[~2022-10-08] MED LIST changes: +NYST-38 SS; -NYST50SS SS
[2022-10-08 17:39] LABS: BASO # 0.1 10^3/uL (0.0-0.2); BASO % 0.7 % (0.0-1.0); EOS # 0.1 10^3/uL (0.0-0.5); HEMATOCRIT 39.5 % (36.0-47.0); HEMOGLOBIN 12.9 g/dl (12.0-15.5); LYMPH # 1.9 10^3/uL (1.5-5.0); MEAN CORPUSCULAR HEMOGLOBIN 31.2 pg (27.0-33.0); MEAN CORPUSCULAR HGB CONC 32.7 g/dl (32.0-36.5); MEAN CORPUSCULAR VOLUME 95.4 fl (80.0-96.0); MONO % 11.1 % (2.0-8.0); NEUTROPHILS # 5.6 10^3/uL (1.5-8.5); NEUTROPHILS % 64.7 % (36.0-66.0); PLATELET COUNT, AUTOMATED 263 10^3/uL (150-450); RED BLOOD COUNT 4.14 10^6/uL (4.00-5.40); WHITE BLOOD COUNT 8.7 10^3/uL (4.0-10.0)
[2022-10-08 18:05] LABS: ALBUMIN 3.7 G/DL (3.2-5.2); ALKALINE PHOSPHATASE 110 U/L (46-116); ALT/SGPT 28 U/L (7.0-40); AST/SGOT 22 U/L (<34); BILIRUBIN,TOTAL 0.2 MG/DL (0.3-1.2); BLOOD UREA NITROGEN 11 MG/DL (9-23); CALCIUM LEVEL 9.3 MG/DL (8.5-10.1); CARBON DIOXIDE LEVEL 29 MMOL/L (20-31); CHLORIDE LEVEL 101 MMOL/L (98-107); CREATININE FOR GFR 0.68 MG/DL (0.55-1.30); GLOMERULAR FILTRATION RATE > 60.0 (>51); GLUCOSE, FASTING 120 MG/DL (60-100); POTASSIUM SERUM 4.7 MMOL/L (3.5-5.1); SODIUM LEVEL 137 MMOL/L (136-145); TOTAL PROTEIN 6.6 G/DL (5.7-8.2)
[2022-10-08 18:34] LABS: ERYTHROCYTE SEDIMENTATION RATE 24 mm/hr (0-30)
== END ==
LOC: M SFHCCAPE 10:42
PROVIDERS: ATTEND Internal Medicine Rheumatology
DX: M05.79 Rheumatoid arthritis with rheumatoid factor of multiple sites without organ or systems involvement (principal); Z79.899 Other long term (current) drug therapy; M89.49 Other hypertrophic osteoarthropathy, multiple sites; Z72.0 Tobacco use

== ENCOUNTER → 2023-01-18 | Outpatient (CLI) | payer OTHER | LOC: M PAIN 13:00 | PROVIDERS: ATTEND Nurse Practitioner Family | DX: M51.16 Intervertebral disc disorders with radiculopathy, lumbar region (principal); G89.29 Other chronic pain; K21.9 Gastro-esophageal reflux disease without esophagitis; M06.9 Rheumatoid arthritis, unspecified; J44.9 Chronic obstructive pulmonary disease, unspecified; F17.210 Nicotine dependence, cigarettes, uncomplicated; Z86.59 Personal history of other mental and behavioral disorders; Z79.899 Other long term (current) drug therapy ==

== ENCOUNTER → 2023-03-01 | Outpatient (CLI) | payer OTHER | LOC: M PLAIMG 08:02 | PROVIDERS: ATTEND Nurse Practitioner Family | DX: M51.16 Intervertebral disc disorders with radiculopathy, lumbar region (principal); M47.816 Spondylosis without myelopathy or radiculopathy, lumbar region ==

== ENCOUNTER → 2023-03-19 | Outpatient (CLI) | payer OTHER | LOC: M TMPAIN 11:00 → M PAIN 11:00 | PROVIDERS: ATTEND Nurse Practitioner Family | DX: M51.16 Intervertebral disc disorders with radiculopathy, lumbar region (principal); G89.29 Other chronic pain; K21.9 Gastro-esophageal reflux disease without esophagitis; M06.9 Rheumatoid arthritis, unspecified; J44.9 Chronic obstructive pulmonary disease, unspecified; F17.210 Nicotine dependence, cigarettes, uncomplicated; Z86.59 Personal history of other mental and behavioral disorders; Z79.899 Other long term (current) drug therapy ==

== ENCOUNTER → 2023-04-08 | Outpatient (REF) | payer OTHER ==
[2023-04-08 19:50] LABS: BASO % 0.5 % (0.0-1.0); EOS # 0.1 10^3/uL (0.0-0.5); EOS % 1.5 % (0.0-3.0); LYMPH # 1.8 10^3/uL (1.5-5.0); LYMPH % 20.4 % (24.0-44.0); MEAN CORPUSCULAR HEMOGLOBIN 31.3 pg (27.0-33.0); MEAN CORPUSCULAR HGB CONC 32.5 g/dl (32.0-36.5); MEAN CORPUSCULAR VOLUME 96.4 fl (80.0-96.0); MONO # 1.1 10^3/uL (0.0-0.8); MONO % 12.7 % (2.0-8.0); NEUTROPHILS # 5.6 10^3/uL (1.5-8.5); NEUTROPHILS % 64.6 % (36.0-66.0); PLATELET COUNT, AUTOMATED 304 10^3/uL (150-450); RED BLOOD COUNT 4.15 10^6/uL (4.00-5.40); WHITE BLOOD COUNT 8.7 10^3/uL (4.0-10.0)
[2023-04-08 20:13] LABS: ERYTHROCYTE SEDIMENTATION RATE 19 mm/hr (0-30)
[2023-04-08 21:45] LABS: ALBUMIN 3.7 G/DL (3.2-5.2); ALKALINE PHOSPHATASE 103 U/L (46-116); ALT/SGPT 20 U/L (7.0-40); AST/SGOT < 8 U/L (<34); BILIRUBIN,TOTAL 0.3 MG/DL (0.3-1.2); BLOOD UREA NITROGEN 9 MG/DL (9-23); CALCIUM LEVEL 9.1 MG/DL (8.5-10.1); CARBON DIOXIDE LEVEL 29 MMOL/L (20-31); CHLORIDE LEVEL 108 MMOL/L (98-107); CREATININE FOR GFR 0.65 MG/DL (0.55-1.30); GLOMERULAR FILTRATION RATE > 60.0 (>51); GLUCOSE, FASTING 70 MG/DL (60-100); POTASSIUM SERUM 4.7 MMOL/L (3.5-5.1); SODIUM LEVEL 143 MMOL/L (136-145); TOTAL PROTEIN 6.5 G/DL (5.7-8.2)
== END ==
LOC: M SFHCCAPE 08:17
PROVIDERS: ATTEND Physician Assistant
DX: M05.79 Rheumatoid arthritis with rheumatoid factor of multiple sites without organ or systems involvement (principal); Z79.899 Other long term (current) drug therapy; M89.49 Other hypertrophic osteoarthropathy, multiple sites; Z72.0 Tobacco use

== ENCOUNTER → 2023-05-14 | Outpatient (CLI) | payer OTHER ==
[~2023-05-14] MED LIST changes: +ISOVUE-M 300 61% 15ML VIAL As Ordered ONE; +LIDOCAINE 1% SDV 30ML VIAL As Ordered ONE; +NORCO, ANEXSIA 5/325MG TABLET (HYDROcodone/ACETAMINOPHEN) As Ordered ONE; +diazePAM 5MG TABLET As Ordered ONE; +methylPREDNISolone SUSP 40MG/ML 1ML VIAL (DEPO MEDROL) As Ordered ONE
== END ==
LOC: M PAIN 10:00
PROVIDERS: ATTEND Anesthesiology
DX: M51.16 Intervertebral disc disorders with radiculopathy, lumbar region (principal); G89.29 Other chronic pain; K21.9 Gastro-esophageal reflux disease without esophagitis; M06.9 Rheumatoid arthritis, unspecified; J44.9 Chronic obstructive pulmonary disease, unspecified; F17.210 Nicotine dependence, cigarettes, uncomplicated; Z86.59 Personal history of other mental and behavioral disorders; Z79.899 Other long term (current) drug therapy
CPT/HCPCS: 62323; J1030; Q9967

== ENCOUNTER → 2023-07-14 | Outpatient (CLI) | payer OTHER ==
[~2023-07-14] MED LIST changes: -ISOVUE-M 300 61% 15ML VIAL As Ordered ONE; -LIDOCAINE 1% SDV 30ML VIAL As Ordered ONE; -NORCO, ANEXSIA 5/325MG TABLET (HYDROcodone/ACETAMINOPHEN) As Ordered ONE; -PREG200C PO; +PREG200C2 PO; -diazePAM 5MG TABLET As Ordered ONE; -methylPREDNISolone SUSP 40MG/ML 1ML VIAL (DEPO MEDROL) As Ordered ONE
== END ==
LOC: M PAIN 16:00
PROVIDERS: ATTEND Anesthesiology
DX: M51.16 Intervertebral disc disorders with radiculopathy, lumbar region (principal); G89.29 Other chronic pain; F17.210 Nicotine dependence, cigarettes, uncomplicated; Z80.1 Family history of malignant neoplasm of trachea, bronchus and lung; Z79.899 Other long term (current) drug therapy

== ENCOUNTER → 2023-07-21 | Outpatient (REF) | payer OTHER ==
[2023-07-21 18:23] LABS: BASO # 0.1 10^3/uL (0.0-0.2); BASO % 0.7 % (0.0-1.0); EOS # 0.1 10^3/uL (0.0-0.5); EOS % 0.9 % (0.0-3.0); HEMATOCRIT 41.2 % (36.0-47.0); HEMOGLOBIN 13.6 g/dl (12.0-15.5); LYMPH # 1.9 10^3/uL (1.5-5.0); LYMPH % 26.9 % (24.0-44.0); MEAN CORPUSCULAR HEMOGLOBIN 30.8 pg (27.0-33.0); MEAN CORPUSCULAR VOLUME 93.4 fl (80.0-96.0); MONO # 0.8 10^3/uL (0.0-0.8); NEUTROPHILS # 4.2 10^3/uL (1.5-8.5); NEUTROPHILS % 60.2 % (36.0-66.0); PLATELET COUNT, AUTOMATED 363 10^3/uL (150-450); RED BLOOD COUNT 4.41 10^6/uL (4.00-5.40); WHITE BLOOD COUNT 6.9 10^3/uL (4.0-10.0)
[2023-07-21 18:46] LABS: ALBUMIN 3.7 G/DL (3.2-5.2); ALKALINE PHOSPHATASE 101 U/L (46-116); ALT/SGPT 103 U/L (7.0-40); AST/SGOT 84 U/L (<34); BILIRUBIN,TOTAL 0.3 MG/DL (0.3-1.2); BLOOD UREA NITROGEN 16 MG/DL (9-23); CALCIUM LEVEL 9.6 MG/DL (8.5-10.1); CARBON DIOXIDE LEVEL 28 MMOL/L (20-31); CHLORIDE LEVEL 106 MMOL/L (98-107); CREATININE FOR GFR 0.58 MG/DL (0.55-1.30); GLOMERULAR FILTRATION RATE > 60.0 (>51); GLUCOSE, FASTING 80 MG/DL (60-100); POTASSIUM SERUM 4.7 MMOL/L (3.5-5.1); SODIUM LEVEL 142 MMOL/L (136-145); TOTAL PROTEIN 6.8 G/DL (5.7-8.2)
[2023-07-21 18:48] LABS: CHOLESTEROL RISK RATIO 2.89 (<5); HDL CHOLESTEROL 68.1 MG/DL (>40); LDL CHOLESTEROL 97.3 MG/DL (<100); NON-HDL-C 128.9 MG/DL
[2023-07-21 19:00] LABS: ERYTHROCYTE SEDIMENTATION RATE 30 mm/hr (0-30)
== END ==
LOC: M SFHCCAPE 10:28
PROVIDERS: ATTEND Physician Assistant Medical
DX: E78.2 Mixed hyperlipidemia (principal); R73.03 Prediabetes; Z79.899 Other long term (current) drug therapy; M05.79 Rheumatoid arthritis with rheumatoid factor of multiple sites without organ or systems involvement; M89.49 Other hypertrophic osteoarthropathy, multiple sites; Z72.0 Tobacco use

== ENCOUNTER → 2023-11-05 | Outpatient (CLI) | payer OTHER | LOC: M PAIN 10:45 | PROVIDERS: ATTEND Nurse Practitioner Family | DX: M51.16 Intervertebral disc disorders with radiculopathy, lumbar region (principal); G89.29 Other chronic pain; F32.A Depression, unspecified; K21.9 Gastro-esophageal reflux disease without esophagitis; M06.9 Rheumatoid arthritis, unspecified; M81.0 Age-related osteoporosis without current pathological fracture; J44.9 Chronic obstructive pulmonary disease, unspecified; F41.9 Anxiety disorder, unspecified; F17.210 Nicotine dependence, cigarettes, uncomplicated; Z79.899 Other long term (current) drug therapy; F10.21 Alcohol dependence, in remission ==

== ENCOUNTER → 2023-11-23 | Outpatient (REF) | payer OTHER ==
[2023-11-23 18:33] LABS: BASO # 0.1 10^3/uL (0.0-0.2); BASO % 0.7 % (0.0-1.0); EOS # 0.1 10^3/uL (0.0-0.5); EOS % 0.6 % (0.0-3.0); HEMATOCRIT 42.5 % (36.0-47.0); HEMOGLOBIN 13.8 g/dl (12.0-15.5); LYMPH % 22.7 % (24.0-44.0); MEAN CORPUSCULAR HEMOGLOBIN 31.2 pg (27.0-33.0); MEAN CORPUSCULAR HGB CONC 32.5 g/dl (32.0-36.5); MEAN CORPUSCULAR VOLUME 95.9 fl (80.0-96.0); MONO # 0.8 10^3/uL (0.0-0.8); MONO % 9.4 % (2.0-8.0); NEUTROPHILS % 66.4 % (36.0-66.0); PLATELET COUNT, AUTOMATED 318 10^3/uL (150-450); RED BLOOD COUNT 4.43 10^6/uL (4.00-5.40)
[2023-11-23 19:08] LABS: ALBUMIN 3.6 G/DL (3.2-5.2); ALKALINE PHOSPHATASE 99 U/L (46-116); ALT/SGPT 85 U/L (7.0-40); AST/SGOT 47 U/L (<34); BILIRUBIN,TOTAL 0.4 MG/DL (0.3-1.2); BLOOD UREA NITROGEN 11 MG/DL (9-23); CALCIUM LEVEL 9.2 MG/DL (8.5-10.1); CARBON DIOXIDE LEVEL 30 MMOL/L (20-31); CHLORIDE LEVEL 107 MMOL/L (98-107); CREATININE FOR GFR 0.54 MG/DL (0.55-1.30); GLOMERULAR FILTRATION RATE > 60.0 (>51); GLUCOSE, FASTING 84 MG/DL (60-100); POTASSIUM SERUM 4.6 MMOL/L (3.5-5.1); SODIUM LEVEL 139 MMOL/L (136-145)
[2023-11-23 19:22] LABS: ERYTHROCYTE SEDIMENTATION RATE 69 mm/hr (0-30)
== END ==
LOC: M SFHCCAPE 09:44
PROVIDERS: ATTEND Internal Medicine Rheumatology
DX: M05.79 Rheumatoid arthritis with rheumatoid factor of multiple sites without organ or systems involvement (principal); Z79.899 Other long term (current) drug therapy; M89.49 Other hypertrophic osteoarthropathy, multiple sites; Z72.0 Tobacco use

== ENCOUNTER → 2023-11-30 | Outpatient (REF) | payer OTHER ==
[2023-11-30 12:31] LABS: BASO # 0.1 10^3/uL (0.0-0.2); BASO % 0.7 % (0.0-1.0); EOS # 0.1 10^3/uL (0.0-0.5); HEMATOCRIT 41.7 % (36.0-47.0); HEMOGLOBIN 13.7 g/dl (12.0-15.5); LYMPH # 2.2 10^3/uL (1.5-5.0); LYMPH % 30.2 % (24.0-44.0); MEAN CORPUSCULAR HEMOGLOBIN 31.4 pg (27.0-33.0); MEAN CORPUSCULAR HGB CONC 32.9 g/dl (32.0-36.5); MEAN CORPUSCULAR VOLUME 95.4 fl (80.0-96.0); MONO # 0.6 10^3/uL (0.0-0.8); MONO % 7.9 % (2.0-8.0); NEUTROPHILS # 4.3 10^3/uL (1.5-8.5); NEUTROPHILS % 59.9 % (36.0-66.0); PLATELET COUNT, AUTOMATED 361 10^3/uL (150-450); RED BLOOD COUNT 4.37 10^6/uL (4.00-5.40); WHITE BLOOD COUNT 7.2 10^3/uL (4.0-10.0)
[2023-11-30 12:57] LABS: ALBUMIN 3.9 G/DL (3.2-5.2); ALKALINE PHOSPHATASE 86 U/L (46-116); ALT/SGPT 44 U/L (7.0-40); AST/SGOT 28 U/L (<34); BILIRUBIN,TOTAL 0.3 MG/DL (0.3-1.2); BLOOD UREA NITROGEN 11 MG/DL (9-23); CALCIUM LEVEL 9.5 MG/DL (8.5-10.1); CARBON DIOXIDE LEVEL 30 MMOL/L (20-31); CHLORIDE LEVEL 106 MMOL/L (98-107); CREATININE FOR GFR 0.56 MG/DL (0.55-1.30); GLOMERULAR FILTRATION RATE > 60.0 (>51); GLUCOSE, FASTING 79 MG/DL (60-100); POTASSIUM SERUM 4.4 MMOL/L (3.5-5.1); SODIUM LEVEL 141 MMOL/L (136-145); TOTAL PROTEIN 6.8 G/DL (5.7-8.2)
[2023-11-30 13:37] LABS: HEPATITIS B CORE ANTIBODY IGM NEGATIVE (NEGATIVE); HEPATITIS C VIRUS ABY INDEX 0.06 INDEX (<0.8)
[2023-11-30 13:38] LABS: ERYTHROCYTE SEDIMENTATION RATE 29 mm/hr (0-30)
== END ==
LOC: M SFHCRHEU 10:28
PROVIDERS: ATTEND Internal Medicine Rheumatology
DX: M05.79 Rheumatoid arthritis with rheumatoid factor of multiple sites without organ or systems involvement (principal); Z79.899 Other long term (current) drug therapy; M89.49 Other hypertrophic osteoarthropathy, multiple sites; Z72.0 Tobacco use

== ENCOUNTER → 2023-12-20 | Outpatient (CLI) | payer OTHER | LOC: M PAIN 16:00 | PROVIDERS: ATTEND Nurse Practitioner Family | DX: M79.10 Myalgia, unspecified site (principal); M47.812 Spondylosis without myelopathy or radiculopathy, cervical region; G89.29 Other chronic pain; F17.200 Nicotine dependence, unspecified, uncomplicated; J44.9 Chronic obstructive pulmonary disease, unspecified; Z79.2 Long term (current) use of antibiotics; Z79.51 Long term (current) use of inhaled steroids; Z79.631 Long term (current) use of antimetabolite agent; Z79.891 Long term (current) use of opiate analgesic; Z79.899 Other long term (current) drug therapy ==

== ENCOUNTER → 2024-01-22 | Outpatient (CLI) | payer OTHER | LOC: M RAD 10:20 | PROVIDERS: ATTEND Nurse Practitioner Family | DX: M47.812 Spondylosis without myelopathy or radiculopathy, cervical region (principal) ==

== ENCOUNTER → 2024-03-03 | Outpatient (CLI) | payer OTHER | LOC: M PAIN 10:45 | PROVIDERS: ATTEND Nurse Practitioner Family | DX: M79.10 Myalgia, unspecified site (principal); G89.29 Other chronic pain; M54.2 Cervicalgia; F32.A Depression, unspecified; K21.9 Gastro-esophageal reflux disease without esophagitis; M06.9 Rheumatoid arthritis, unspecified; M81.0 Age-related osteoporosis without current pathological fracture; J44.9 Chronic obstructive pulmonary disease, unspecified; F41.9 Anxiety disorder, unspecified; F17.210 Nicotine dependence, cigarettes, uncomplicated; Z79.899 Other long term (current) drug therapy ==

== ENCOUNTER → 2024-03-16 | Outpatient (REF) | payer OTHER ==
[2024-03-16 18:31] LABS: BASO # 0.1 10^3/uL (0.0-0.2); BASO % 0.6 % (0.0-1.0); EOS # 0.1 10^3/uL (0.0-0.5); EOS % 0.8 % (0.0-3.0); HEMATOCRIT 37.2 % (36.0-47.0); HEMOGLOBIN 12.4 g/dl (12.0-15.5); LYMPH # 2.3 10^3/uL (1.5-5.0); LYMPH % 22.9 % (24.0-44.0); MEAN CORPUSCULAR HEMOGLOBIN 31.4 pg (27.0-33.0); MEAN CORPUSCULAR HGB CONC 33.3 g/dl (32.0-36.5); MEAN CORPUSCULAR VOLUME 94.2 fl (80.0-96.0); NEUTROPHILS # 6.6 10^3/uL (1.5-8.5); NEUTROPHILS % 65.6 % (36.0-66.0); PLATELET COUNT, AUTOMATED 273 10^3/uL (150-450); RED BLOOD COUNT 3.95 10^6/uL (4.00-5.40)
[2024-03-16 18:36] LABS: ERYTHROCYTE SEDIMENTATION RATE 20 mm/hr (0-30)
[2024-03-16 19:08] LABS: C REACTIVE PROTEIN QUANTITATIV 0.9 MG/DL (<1.0)
[2024-03-16 19:10] LABS: ALBUMIN 3.6 G/DL (3.2-5.2); BILIRUBIN,TOTAL 0.2 MG/DL (0.3-1.2); CALCIUM LEVEL 8.9 MG/DL (8.5-10.1); CREATININE FOR GFR 1.06 MG/DL (0.55-1.30); GLOMERULAR FILTRATION RATE 56.7 (>51); POTASSIUM SERUM 4.3 MMOL/L (3.5-5.1); TOTAL PROTEIN 6.4 G/DL (5.7-8.2)
== END ==
LOC: M SFHCRHEU 13:45
PROVIDERS: ATTEND Internal Medicine Rheumatology
DX: M05.79 Rheumatoid arthritis with rheumatoid factor of multiple sites without organ or systems involvement (principal); Z79.899 Other long term (current) drug therapy; M89.49 Other hypertrophic osteoarthropathy, multiple sites; Z72.0 Tobacco use

== ENCOUNTER → 2024-03-17 | Outpatient (CLI) | payer OTHER ==
[~2024-03-17] MED LIST changes: +TRIAMCINOLONE ACETONIDE SUSP 40MG/ML 1ML VIAL As Ordered ONE
== END ==
LOC: M PAIN 14:30
PROVIDERS: ATTEND Anesthesiology
DX: M79.12 Myalgia of auxiliary muscles, head and neck (principal); G89.29 Other chronic pain; F32.A Depression, unspecified; K21.9 Gastro-esophageal reflux disease without esophagitis; M06.9 Rheumatoid arthritis, unspecified; J44.9 Chronic obstructive pulmonary disease, unspecified; F41.9 Anxiety disorder, unspecified; F17.210 Nicotine dependence, cigarettes, uncomplicated; Z79.899 Other long term (current) drug therapy
CPT/HCPCS: 20552; J0665; J3301

== ENCOUNTER → 2024-06-19 | Outpatient (CLI) | payer OTHER ==
[~2024-06-19] MED LIST changes: +GABA-1490; +GABA-1635; -GABA600T4; -GABA800T4; -TRIAMCINOLONE ACETONIDE SUSP 40MG/ML 1ML VIAL As Ordered ONE
== END ==
LOC: M PAIN 17:00
PROVIDERS: ATTEND Nurse Practitioner Family
DX: M51.16 Intervertebral disc disorders with radiculopathy, lumbar region (principal); G89.29 Other chronic pain; M79.18 Myalgia, other site; F32.A Depression, unspecified; K21.9 Gastro-esophageal reflux disease without esophagitis; M06.9 Rheumatoid arthritis, unspecified; M81.0 Age-related osteoporosis without current pathological fracture; J44.9 Chronic obstructive pulmonary disease, unspecified; F41.9 Anxiety disorder, unspecified; Z79.899 Other long term (current) drug therapy; F17.210 Nicotine dependence, cigarettes, uncomplicated

== ENCOUNTER → 2024-07-04 | Outpatient (CLI) | payer OTHER ==
[~2024-07-04] MED LIST changes: +ISOVUE-M 300 61% 15ML VIAL As Ordered ONE; +LIDOCAINE 1% SDV 30ML VIAL As Ordered ONE; +NORCO, ANEXSIA 5/325MG TABLET (HYDROcodone/ACETAMINOPHEN) As Ordered ONE; +dexAMETHasone 10MG/1ML VIAL PRES.FREE As Ordered ONE; +diazePAM 5MG TABLET As Ordered ONE
== END ==
LOC: M PAIN 08:15
PROVIDERS: ATTEND Anesthesiology
DX: M51.16 Intervertebral disc disorders with radiculopathy, lumbar region (principal); G89.29 Other chronic pain; F32.A Depression, unspecified; K21.9 Gastro-esophageal reflux disease without esophagitis; M06.9 Rheumatoid arthritis, unspecified; M81.0 Age-related osteoporosis without current pathological fracture; J44.9 Chronic obstructive pulmonary disease, unspecified; F41.9 Anxiety disorder, unspecified; F17.210 Nicotine dependence, cigarettes, uncomplicated; Z79.899 Other long term (current) drug therapy
CPT/HCPCS: 62323; J1100; Q9967

== ENCOUNTER → 2024-08-01 | Outpatient (REF) | payer OTHER ==
[~2024-08-01] MED LIST changes: -ISOVUE-M 300 61% 15ML VIAL As Ordered ONE; -LIDOCAINE 1% SDV 30ML VIAL As Ordered ONE; -NORCO, ANEXSIA 5/325MG TABLET (HYDROcodone/ACETAMINOPHEN) As Ordered ONE; -dexAMETHasone 10MG/1ML VIAL PRES.FREE As Ordered ONE; -diazePAM 5MG TABLET As Ordered ONE
[2024-08-01 17:08] LABS: BASO # 0.1 10^3/uL (0.0-0.2); BASO % 0.9 % (0.0-1.0); EOS # 0.1 10^3/uL (0.0-0.5); EOS % 1.1 % (0.0-3.0); HEMATOCRIT 42.4 % (36.0-47.0); HEMOGLOBIN 14.3 g/dl (12.0-15.5); LYMPH % 30.6 % (24.0-44.0); MEAN CORPUSCULAR HEMOGLOBIN 30.8 pg (27.0-33.0); MEAN CORPUSCULAR HGB CONC 33.7 g/dl (32.0-36.5); MEAN CORPUSCULAR VOLUME 91.4 fl (80.0-96.0); MONO # 0.7 10^3/uL (0.0-0.8); MONO % 10.6 % (2.0-8.0); NEUTROPHILS # 3.7 10^3/uL (1.5-8.5); NEUTROPHILS % 56.6 % (36.0-66.0); PLATELET COUNT, AUTOMATED 304 10^3/uL (150-450); RED BLOOD COUNT 4.64 10^6/uL (4.00-5.40); WHITE BLOOD COUNT 6.4 10^3/uL (4.0-10.0)
[2024-08-01 17:17] LABS: ERYTHROCYTE SEDIMENTATION RATE 27 mm/hr (0-30)
[2024-08-01 17:37] LABS: ALBUMIN 3.9 G/DL (3.2-5.2); ALKALINE PHOSPHATASE 97 U/L (35-104); ALT/SGPT 21 U/L (7.0-40); AST/SGOT 11 U/L (<34); BILIRUBIN,TOTAL 0.5 MG/DL (0.3-1.2); BLOOD UREA NITROGEN 10 MG/DL (9-23); CALCIUM LEVEL 9.9 MG/DL (8.5-10.1); CARBON DIOXIDE LEVEL 28 MMOL/L (20-31); CHLORIDE LEVEL 106 MMOL/L (98-107); CREATININE FOR GFR 0.54 MG/DL (0.55-1.30); GLOMERULAR FILTRATION RATE > 60.0 (>51); GLUCOSE, FASTING 88 MG/DL (60-100); POTASSIUM SERUM 4.5 MMOL/L (3.5-5.1); SODIUM LEVEL 141 MMOL/L (136-145); TOTAL PROTEIN 7.2 G/DL (5.7-8.2)
== END ==
LOC: M SFHCCAPE 10:23
PROVIDERS: ATTEND Internal Medicine Rheumatology
DX: M05.79 Rheumatoid arthritis with rheumatoid factor of multiple sites without organ or systems involvement (principal); Z79.899 Other long term (current) drug therapy; M89.49 Other hypertrophic osteoarthropathy, multiple sites; Z72.0 Tobacco use

== ENCOUNTER 2024-08-25 14:30 | Emergency (ER) | payer OTHER ==
[~2024-08-25] VITALS: Ht 160 cm; Wt 78.3 kg
[2024-08-25] MEDS: ACETAMINOPHEN *IV* 1,000 MG in IV 1 EA IV ONE (15:44)
[2024-08-25] MEDS: fentaNYL 100 MCG/2 ML INJECTION IV ONE (15:44)
[2024-08-25 16:39] VITALS: BP 118/60; TEMP 97.4; O2SAT 97
[2024-08-25] MEDS: oxyCODONE 5MG TAB PO ONE (16:51)
[2024-08-25] MEDS ORDERED: PERCOCET PO (17:13)
[2024-08-29] MEDS ORDERED: HYDR50TA70 PO (09:12)
== END 2024-08-25 17:25 | disposition home or self-care (01) ==
LOC: M ED 14:30
DX: S52.592A Other fractures of lower end of left radius, initial encounter for closed fracture (principal); S52.612A Displaced fracture of left ulna styloid process, initial encounter for closed fracture; S62.112A Displaced fracture of triquetrum [cuneiform] bone, left wrist, initial encounter for closed fracture; W19.XXXA Unspecified fall, initial encounter; Y92.009 Unspecified place in unspecified non-institutional (private) residence as the place of occurrence of the external cause; Y93.9 Activity, unspecified; Y99.9 Unspecified external cause status; J44.9 Chronic obstructive pulmonary disease, unspecified; K21.9 Gastro-esophageal reflux disease without esophagitis; M54.9 Dorsalgia, unspecified; F17.200 Nicotine dependence, unspecified, uncomplicated
CPT/HCPCS: 73090; 73110; 96374; 96375; 99283; J0131; J3010

== ENCOUNTER 2024-08-31 06:12 | Day surgery (SDC) | payer OTHER ==
[~2024-08-31] VITALS: Ht 160 cm; Wt 78.5 kg
[~2024-08-31 06:12] MED LIST changes: +HYDR50TA70 PO; +PERCOCET PO; +ceFAZolin SOD 2 GM in IV 1 EA IV ONE
[2024-08-31] MEDS ORDERED: LR 1,000 ML IV SCH (06:45)
[2024-08-31] MEDS ORDERED: LIDOCAINE 2% 100MG/5ML SDV (FOR ANES.) As Ordered ONE (06:56)
[2024-08-31] MEDS ORDERED: propofoL 200 MG/20 ML VIAL As Ordered ONE (06:56)
[2024-08-31] MEDS ORDERED: ONDANSETRON 4MG 2ML VIAL As Ordered ONE (06:56)
[2024-08-31] MEDS ORDERED: dexmedeTOMIDine (4MCG/ML)200MCG/50ML BTL (PRECEDEX) As Ordered ONE (06:58)
[2024-08-31] MEDS ORDERED: MIDAZOLAM INJ 2MG/2ML VIAL As Ordered ONE (06:59)
[2024-08-31] MEDS ORDERED: fentaNYL 100 MCG/2 ML INJECTION As Ordered ONE (07:00)
[2024-08-31] MEDS: ceFAZolin 2 GM/D5W 50 ML IV BAG As Ordered ONE (07:44)
[2024-08-31] MEDS ORDERED: ACETAMINOPHEN 1000MG/100ML IV BAG As Ordered ONE (07:46)
[2024-08-31] MEDS: fentaNYL 100 MCG/2 ML INJECTION IV PRN (08:45)
[2024-08-31] MEDS: ONDANSETRON 4MG 2ML VIAL IV PRN (08:45)
[2024-08-31] MEDS ORDERED: PERCOCET PO (08:47)
[2024-08-31] MEDS: oxyCODONE 5MG TAB PO PRN (09:12)
[2024-08-31] MEDS: HYDROMORPHONE HCL 0.5 MG/ 0.5 ML SYRINGE IV PRN (09:12)
[2024-08-31] MEDS: KETOROLAC 30 MG/ML 1ML VIAL IV ONE (09:28)
[2024-08-31 10:25] VITALS: BP 123/97; TEMP 97.1; O2SAT 94
== END 2024-08-31 10:30 | disposition home or self-care (01) ==
LOC: M SDC 06:12
PROVIDERS: ATTEND Orthopaedic Surgery
DX: S52.572A Other intraarticular fracture of lower end of left radius, initial encounter for closed fracture (principal); M06.9 Rheumatoid arthritis, unspecified; J44.9 Chronic obstructive pulmonary disease, unspecified; W19.XXXA Unspecified fall, initial encounter; Y93.9 Activity, unspecified; Y92.9 Unspecified place or not applicable; K21.9 Gastro-esophageal reflux disease without esophagitis; Z79.899 Other long term (current) drug therapy; Z79.631 Long term (current) use of antimetabolite agent; Z90.49 Acquired absence of other specified parts of digestive tract; Z90.710 Acquired absence of both cervix and uterus; F17.210 Nicotine dependence, cigarettes, uncomplicated
CPT/HCPCS: 25609; 76000; C1713; J0131; J0665; J0690; J1100; J1171; J1885; J2250; J2405; J3010

== ENCOUNTER → 2024-09-11 | Outpatient (CLI) | payer OTHER ==
[~2024-09-11] MED LIST changes: -ceFAZolin SOD 2 GM in IV 1 EA IV ONE
== END ==
LOC: M SOG 07:56
PROVIDERS: ATTEND Orthopaedic Surgery
DX: M25.532 Pain in left wrist (principal); S52.572A Other intraarticular fracture of lower end of left radius, initial encounter for closed fracture; W18.30XA Fall on same level, unspecified, initial encounter; Y92.009 Unspecified place in unspecified non-institutional (private) residence as the place of occurrence of the external cause

== ENCOUNTER 2024-10-03 17:24 | Inpatient (IN) | payer OTHER ==
[~2024-10-03] VITALS: Ht 160 cm; Wt 78.5 kg
[2024-10-03] MEDS ORDERED: ACETAMINOPHEN 325 MG TAB PO PRN (19:50)
[2024-10-03] MEDS ORDERED: NORCO, ANEXSIA 5/325MG TABLET (HYDROcodone/ACETAMINOPHEN) PO PRN (20:25)
[2024-10-03 20:33] LABS: HEMATOCRIT 40.6 % (36.0-47.0); MEAN CORPUSCULAR HEMOGLOBIN 30.8 pg (27.0-33.0); MEAN CORPUSCULAR HGB CONC 34.5 g/dl (32.0-36.5); MEAN CORPUSCULAR VOLUME 89.2 fl (80.0-96.0); PLATELET COUNT, AUTOMATED 278 10^3/uL (150-450); RED BLOOD COUNT 4.55 10^6/uL (4.00-5.40); WHITE BLOOD COUNT 11.6 10^3/uL (4.0-10.0)
[2024-10-03] MEDS ORDERED: AMOX875T2 PO (20:56)
[2024-10-03] MEDS ORDERED: METH2.5T48 PO (20:57)
[2024-10-03] MEDS ORDERED: HOME MED LIST COMPLETE! XX SCH (21:00)
[2024-10-03 21:04] LABS: ALBUMIN 4.2 G/DL (3.2-5.2); ALKALINE PHOSPHATASE 107 U/L (35-104); ALT/SGPT 19 U/L (7.0-40); AST/SGOT 12 U/L (<34); BILIRUBIN,TOTAL 0.4 MG/DL (0.3-1.2); BLOOD UREA NITROGEN 9 MG/DL (9-23); CALCIUM LEVEL 10.6 MG/DL (8.5-10.1); CARBON DIOXIDE LEVEL 28 MMOL/L (20-31); CHLORIDE LEVEL 103 MMOL/L (98-107); CREATININE FOR GFR 0.54 MG/DL (0.55-1.30); GLOMERULAR FILTRATION RATE > 60.0 (>51); GLUCOSE, FASTING 107 MG/DL (60-100); POTASSIUM SERUM 4.1 MMOL/L (3.5-5.1); SODIUM LEVEL 135 MMOL/L (136-145); TOTAL PROTEIN 7.5 G/DL (5.7-8.2)
[2024-10-03] MEDS ORDERED: COMBIVENT RESPIMAT 100-20MCG INHALER 4GM INH PRN (21:35)
[2024-10-03] MEDS ORDERED: ALBUTEROL 90 MCG/ACT 8GM HFA INHALER INH PRN (21:35)
[2024-10-03 22:15] VITALS: BP 119/70; TEMP 98.1; O2SAT 97
[2024-10-03] MEDS: PREGABALIN 100 MG CAP (LYRICA) PO SCH (22:44)
[2024-10-03] MEDS: KETOROLAC 30 MG/ML 1ML VIAL IV PRN (22:44)
[2024-10-03] MEDS: PIPERACILLIN/TAZOBACTAM SOD 3.375 GM in DEXTROSE 5% (D5W) ADV/MINI-BAG 50 ML IV SCH (22:44)
[2024-10-03] MEDS: VANCOMYCIN HCL 1,500 MG, VIAL MATE ADAPTER 1 EACH in NS 500 ML IV SCH (23:51)
[2024-10-04 03:50] VITALS: BP 104/62; TEMP 97.7; O2SAT 97
[2024-10-04] MEDS: VANCOMYCIN HCL 1,000 MG, VIAL MATE ADAPTER 1 EACH in NS 250 ML IV SCH (04:11)
[2024-10-04] MEDS: FOLIC ACID 1MG TAB PO SCH (10:09)
[2024-10-04] MEDS: LORATADINE 10 MG TAB PO SCH (10:10)
[2024-10-04] MEDS: cefTRIAXone SOD 2 GM in DEXTROSE 5% (D5W) ADV/MINI-BAG 50 ML IV SCH (10:10)
[2024-10-04 12:00] VITALS: BP 109/65; TEMP 98.6; O2SAT 97
[2024-10-04 13:22] LABS: CALCIUM LEVEL 9.7 MG/DL (8.5-10.1); CREATININE FOR GFR 1.07 MG/DL (0.55-1.30); GLOMERULAR FILTRATION RATE 55.9 (>51); POTASSIUM SERUM 4.1 MMOL/L (3.5-5.1)
[2024-10-04 15:37] LABS: HEMATOCRIT 37.5 % (36.0-47.0); HEMOGLOBIN 12.7 g/dl (12.0-15.5); MEAN CORPUSCULAR HEMOGLOBIN 30.7 pg (27.0-33.0); MEAN CORPUSCULAR HGB CONC 33.9 g/dl (32.0-36.5); MEAN CORPUSCULAR VOLUME 90.6 fl (80.0-96.0); PLATELET COUNT, AUTOMATED 238 10^3/uL (150-450); RED BLOOD COUNT 4.14 10^6/uL (4.00-5.40); WHITE BLOOD COUNT 9.9 10^3/uL (4.0-10.0)
[2024-10-04] MEDS: LR 1,000 ML IV ONE (16:18)
[2024-10-04 18:15] LABS: PROCALCITONIN 0.33 ng/ml
[2024-10-04 20:00] VITALS: BP 112/67; TEMP 98.1; O2SAT 95
[2024-10-04] MEDS: hydrOXYzine 50 MG TAB PO PRN (21:14)
[2024-10-04] MEDS: HEPARIN SOD (PORCINE) 5000UNITS/ML 1ML VIAL/SYRINGE SQ SCH (21:14)
[2024-10-04] MEDS ORDERED: VANCOMYCIN HCL 1,000 MG, VIAL MATE ADAPTER 1 EACH in NS 250 ML IV SCH (23:00)
[2024-10-05] MEDS: VANCOMYCIN HCL 750 MG, VIAL MATE ADAPTER 1 EACH in NS 250 ML IV SCH (00:12)
[2024-10-05 03:49] VITALS: BP 103/48; TEMP 98.1; O2SAT 95
[2024-10-05 06:01] LABS: HEMATOCRIT 36.9 % (36.0-47.0); MEAN CORPUSCULAR HEMOGLOBIN 30.1 pg (27.0-33.0); MEAN CORPUSCULAR HGB CONC 32.5 g/dl (32.0-36.5); MEAN CORPUSCULAR VOLUME 92.5 fl (80.0-96.0); PLATELET COUNT, AUTOMATED 229 10^3/uL (150-450); RED BLOOD COUNT 3.99 10^6/uL (4.00-5.40); WHITE BLOOD COUNT 8.4 10^3/uL (4.0-10.0)
[2024-10-05 06:25] LABS: C REACTIVE PROTEIN QUANTITATIV 2.47 MG/DL (<1.0)
[2024-10-05 06:43] VITALS: BP 127/60
[2024-10-05 07:34] LABS: CALCIUM LEVEL 9.2 MG/DL (8.5-10.1); CREATININE FOR GFR 1.22 MG/DL (0.55-1.30); POTASSIUM SERUM 4.4 MMOL/L (3.5-5.1)
[2024-10-05] MEDS: LR 1,000 ML IV ONE (07:54)
[2024-10-05 08:00] VITALS: BP 122/64; TEMP 97.7; O2SAT 98
[2024-10-05] MEDS ORDERED: DOXYCYCLINE HYCLATE 100 MG in DEXTROSE 5% (D5W) MINI-BAG PLU 100 ML IV SCH (11:00)
[2024-10-05] MEDS ORDERED: VANCOMYCIN 1,250 MG/250 ML IV BAG IV SCH (11:00)
[2024-10-05] MEDS: DOXYCYCLINE HYCLATE 100MG TABLET PO SCH (11:10)
[2024-10-05 11:25] VITALS: BP 115/69; TEMP 98.3; O2SAT 96
[2024-10-05 12:57] LABS: APPEARANCE, URINE CLEAR (CLEAR); BACTERIA, URINE AUTO NEGATIVE (NEGATIVE); BILIRUBIN, URINE AUTO NEGATIVE (NEGATIVE); BLOOD, URINE BLOOD NEGATIVE (NEGATIVE); COLOR, URINE STRAW (YELLOW); GLUCOSE, URINE (UA) AUTO NEGATIVE (NEGATIVE); KETONE, URINE AUTO NEGATIVE (NEGATIVE); LEUKOCYTE ESTERASE, URINE AUTO TRACE (NEGATIVE); NITRITE, URINE AUTO NEGATIVE (NEGATIVE); PROTEIN, URINE AUTO NEGATIVE (NEGATIVE); RBC, URINE AUTO 1 /HPF (0-3); SPECIFIC GRAVITY URINE AUTO 1.004 (1.002-1.035); SQUAMOUS EPITHELIAL CELL UR AU 1 /HPF (0-6); UROBILINOGEN, URINE AUTO 0.2 mg/dL (0.0-2.0); WBC, URINE AUTO 1 /HPF (0-3)
[2024-10-05] MEDS: LR 1,000 ML IV SCH (17:22)
[2024-10-05 19:58] VITALS: BP 113/62; O2SAT 95
[2024-10-05] MEDS: MOM 30ML SUSPENSION UDC PO PRN (23:21)
[2024-10-06 05:01] VITALS: BP 121/68; O2SAT 93
[2024-10-06 07:55] LABS: HEMATOCRIT 35.9 % (36.0-47.0); HEMOGLOBIN 11.9 g/dl (12.0-15.5); MEAN CORPUSCULAR HEMOGLOBIN 30.5 pg (27.0-33.0); MEAN CORPUSCULAR HGB CONC 33.1 g/dl (32.0-36.5); MEAN CORPUSCULAR VOLUME 92.1 fl (80.0-96.0); PLATELET COUNT, AUTOMATED 242 10^3/uL (150-450); WHITE BLOOD COUNT 8.9 10^3/uL (4.0-10.0)
[2024-10-06 08:20] LABS: C REACTIVE PROTEIN QUANTITATIV 3.08 MG/DL (<1.0); CALCIUM LEVEL 9.1 MG/DL (8.5-10.1); CREATININE FOR GFR 1.06 MG/DL (0.55-1.30); GLOMERULAR FILTRATION RATE 56.5 (>51); POTASSIUM SERUM 4.8 MMOL/L (3.5-5.1)
[2024-10-06] MEDS ORDERED: AMOX875T2 PO (11:06)
[2024-10-06] MEDS ORDERED: DOXY100T PO (11:06)
[2024-10-06 12:00] VITALS: BP 120/76; TEMP 97.7; O2SAT 98
== END 2024-10-06 12:30 | disposition home or self-care (01) | DRG 721 ==
LOC: M MSPAV 18:51 → INTOOBSV 19:48 → OBSVTOIN 19:48 → M MS5PR 10-05 11:18
PROVIDERS: ADMIT Student in an Organized Health Care Education/Training Program; ATTEND Student in an Organized Health Care Education/Training Program
DX: T81.41XA Infection following a procedure, superficial incisional surgical site, initial encounter (principal); N17.9 Acute kidney failure, unspecified; T81.31XA Disruption of external operation (surgical) wound, not elsewhere classified, initial encounter; G62.9 Polyneuropathy, unspecified; L03.114 Cellulitis of left upper limb; F32.A Depression, unspecified; F41.9 Anxiety disorder, unspecified; K21.9 Gastro-esophageal reflux disease without esophagitis; S52.572D Other intraarticular fracture of lower end of left radius, subsequent encounter for closed fracture with routine healing; M06.9 Rheumatoid arthritis, unspecified; M81.0 Age-related osteoporosis without current pathological fracture; F17.210 Nicotine dependence, cigarettes, uncomplicated; J44.9 Chronic obstructive pulmonary disease, unspecified; Z90.49 Acquired absence of other specified parts of digestive tract; Z90.79 Acquired absence of other genital organ(s); Z79.2 Long term (current) use of antibiotics; Z79.899 Other long term (current) drug therapy

== ENCOUNTER → 2024-10-11 | Outpatient (CLI) | payer OTHER, MEDICAID ==
[~2024-10-11] MED LIST changes: +AMOX875T2 PO; +DOXY100T PO
== END ==
LOC: M SOG 08:56
PROVIDERS: ATTEND Orthopaedic Surgery
DX: M25.532 Pain in left wrist (principal); M25.632 Stiffness of left wrist, not elsewhere classified; Z87.81 Personal history of (healed) traumatic fracture

== ENCOUNTER → 2024-11-08 | Outpatient (CLI) | payer OTHER | LOC: M SOG 07:49 | PROVIDERS: ATTEND Orthopaedic Surgery | DX: M25.532 Pain in left wrist (principal); M25.632 Stiffness of left wrist, not elsewhere classified; Z87.81 Personal history of (healed) traumatic fracture; S52.612K Displaced fracture of left ulna styloid process, subsequent encounter for closed fracture with nonunion ==

== ENCOUNTER → 2024-11-28 | Outpatient (REF) | payer OTHER ==
[~2024-11-28] MED LIST changes: +CARI-555 PO; -CARI1TAB7 PO
[2024-11-28 18:54] LABS: BASO # 0.1 10^3/uL (0.0-0.2); BASO % 0.9 % (0.0-1.0); EOS # 0.1 10^3/uL (0.0-0.5); HEMATOCRIT 38.6 % (36.0-47.0); HEMOGLOBIN 12.4 g/dl (12.0-15.5); LYMPH % 28.5 % (24.0-44.0); MEAN CORPUSCULAR HGB CONC 32.1 g/dl (32.0-36.5); MEAN CORPUSCULAR VOLUME 93.2 fl (80.0-96.0); MONO # 0.6 10^3/uL (0.0-0.8); MONO % 8.8 % (2.0-8.0); NEUTROPHILS # 4.3 10^3/uL (1.5-8.5); NEUTROPHILS % 60.5 % (36.0-66.0); PLATELET COUNT, AUTOMATED 253 10^3/uL (150-450); RED BLOOD COUNT 4.14 10^6/uL (4.00-5.40)
[2024-11-28 19:14] LABS: ALBUMIN 3.7 G/DL (3.2-5.2); ALKALINE PHOSPHATASE 109 U/L (35-104); ALT/SGPT 16 U/L (7.0-40); AST/SGOT 11 U/L (<34); BILIRUBIN,TOTAL 0.2 MG/DL (0.3-1.2); BLOOD UREA NITROGEN 16 MG/DL (9-23); C REACTIVE PROTEIN QUANTITATIV 0.84 MG/DL (<1.0); CALCIUM LEVEL 9.1 MG/DL (8.5-10.1); CARBON DIOXIDE LEVEL 30 MMOL/L (20-31); CHLORIDE LEVEL 108 MMOL/L (98-107); CREATININE FOR GFR 0.62 MG/DL (0.55-1.30); GLOMERULAR FILTRATION RATE > 60.0 (>51); GLUCOSE, FASTING 70 MG/DL (60-100); POTASSIUM SERUM 4.7 MMOL/L (3.5-5.1); SODIUM LEVEL 142 MMOL/L (136-145); TOTAL PROTEIN 6.9 G/DL (5.7-8.2)
[2024-11-28 19:44] LABS: ERYTHROCYTE SEDIMENTATION RATE 21 mm/hr (0-30)
== END ==
LOC: M SFHCCAPE 10:17
PROVIDERS: ATTEND Internal Medicine Rheumatology
DX: M05.79 Rheumatoid arthritis with rheumatoid factor of multiple sites without organ or systems involvement (principal); Z79.899 Other long term (current) drug therapy; M89.49 Other hypertrophic osteoarthropathy, multiple sites; Z72.0 Tobacco use

== ENCOUNTER → 2025-02-06 | Outpatient (REF) | payer OTHER | LOC: M SFHCCAPE 12:45 | PROVIDERS: ATTEND Physician Assistant Medical | DX: J02.9 Acute pharyngitis, unspecified (principal) ==

== ENCOUNTER → 2025-04-10 | Outpatient (REF) | payer OTHER ==
[2025-04-10 19:02] LABS: C REACTIVE PROTEIN QUANTITATIV 0.87 MG/DL (<1.0)
[2025-04-10 19:04] LABS: ALT/SGPT 18 U/L (7.0-40); AST/SGOT 22 U/L (<34); CALCIUM LEVEL 9.4 MG/DL (8.3-10.6); CARBON DIOXIDE LEVEL 30 MMOL/L (20-31); CHLORIDE LEVEL 104 MMOL/L (98-107); CHOLESTEROL LEVEL 223 MG/DL (<200); CHOLESTEROL RISK RATIO 3.28 (<5); CREATININE FOR GFR 0.59 MG/DL (0.55-1.30); GLOMERULAR FILTRATION RATE > 90.0 (>45); LDL CHOLESTEROL 126.3 MG/DL (<100); NON-HDL-C 155.1 MG/DL; POTASSIUM SERUM 4.5 MMOL/L (3.5-5.1); SODIUM LEVEL 142 MMOL/L (136-145); TRIGLYCERIDES LEVEL 144 MG/DL (<150)
[2025-04-10 19:17] LABS: BASO # 0.0 10^3/uL (0.0-0.2); BASO % 0.5 % (0.0-1.0); EOS # 0.0 10^3/uL (0.0-0.5); EOS % 0.3 % (0.0-3.0); LYMPH # 1.9 10^3/uL (1.5-5.0); LYMPH % 24.6 % (24.0-44.0); MONO # 0.8 10^3/uL (0.0-0.8); MONO % 10.9 % (2.0-8.0); NEUTROPHILS # 4.9 10^3/uL (1.5-8.5); NEUTROPHILS % 63.4 % (36.0-66.0); PLATELET COUNT, AUTOMATED 270 10^3/uL (150-450)
[2025-04-10 19:25] LABS: ERYTHROCYTE SEDIMENTATION RATE 41 mm/hr (0-30)
== END ==
LOC: M SFHCCAPE 07:42
PROVIDERS: ATTEND Physician Assistant Medical
DX: M05.79 Rheumatoid arthritis with rheumatoid factor of multiple sites without organ or systems involvement (principal); Z13.220 Encounter for screening for lipoid disorders; Z79.899 Other long term (current) drug therapy; M89.49 Other hypertrophic osteoarthropathy, multiple sites; Z72.0 Tobacco use

== ENCOUNTER → 2025-05-08 | Outpatient (CLI) | payer OTHER | LOC: M WHC 10:38 | PROVIDERS: ATTEND Physician Assistant Medical | DX: Z12.31 Encounter for screening mammogram for malignant neoplasm of breast (principal); M81.0 Age-related osteoporosis without current pathological fracture; M85.89 Other specified disorders of bone density and structure, multiple sites; R92.323 Mammographic fibroglandular density, bilateral breasts ==

== ENCOUNTER → 2025-05-21 | Outpatient (CLI) | payer OTHER | LOC: M RAD 08:03 | PROVIDERS: ATTEND Physician Assistant Medical | DX: F17.218 Nicotine dependence, cigarettes, with other nicotine-induced disorders (principal) ==

== ENCOUNTER → 2025-06-05 | Outpatient (CLI) | payer OTHER | LOC: M PLARAD 12:43 | PROVIDERS: ATTEND Physician Assistant Medical | DX: R91.8 Other nonspecific abnormal finding of lung field (principal) | CPT/HCPCS: 78815; A9552 ==

== ENCOUNTER → 2025-08-07 | Outpatient (REF) | payer OTHER ==
[~2025-08-07] MED LIST changes: +ALEN70TA82 PO; +METH-1164 PO
[2025-08-07 18:22] LABS: C REACTIVE PROTEIN QUANTITATIV 0.88 MG/DL (<1.0)
[2025-08-07 18:23] LABS: ALT/SGPT 18 U/L (7.0-40); AST/SGOT 22 U/L (<34); CALCIUM LEVEL 9.9 MG/DL (8.3-10.6); CARBON DIOXIDE LEVEL 28 MMOL/L (20-31); CHLORIDE LEVEL 104 MMOL/L (98-107); CREATININE FOR GFR 0.64 MG/DL (0.55-1.30); GLOMERULAR FILTRATION RATE > 90.0 (>45); POTASSIUM SERUM 4.6 MMOL/L (3.5-5.1); SODIUM LEVEL 141 MMOL/L (136-145)
[2025-08-07 18:25] LABS: BASO # 0.0 10^3/uL (0.0-0.2); BASO % 0.5 % (0.0-1.0); EOS # 0.1 10^3/uL (0.0-0.5); EOS % 1.0 % (0.0-3.0); LYMPH # 2.0 10^3/uL (1.5-5.0); LYMPH % 25.4 % (24.0-44.0); MONO # 0.8 10^3/uL (0.0-0.8); MONO % 10.4 % (2.0-8.0); NEUTROPHILS # 4.9 10^3/uL (1.5-8.5); NEUTROPHILS % 62.4 % (36.0-66.0); PLATELET COUNT, AUTOMATED 302 10^3/uL (150-450)
== END ==
LOC: M SFHCCAPE 08:49
PROVIDERS: ATTEND Physician Assistant Medical
DX: M05.79 Rheumatoid arthritis with rheumatoid factor of multiple sites without organ or systems involvement (principal)

== ENCOUNTER 2025-08-10 10:17 | Day surgery (SDC) | payer OTHER ==
[~2025-08-10] VITALS: Ht 167.6 cm; Wt 85.7 kg
[2025-08-10] MEDS ORDERED: LIDOCAINE 2% 100 MG/5 ML SDV (FOR ANES.) As Ordered ONE (11:52)
[2025-08-10 12:01] VITALS: TEMP 97.8
[2025-08-10 12:16] VITALS: BP 115/56; O2SAT 99
== END 2025-08-10 12:23 | disposition home or self-care (01) ==
LOC: M OPP 10:17
PROVIDERS: ATTEND Surgery
DX: K62.1 Rectal polyp (principal); K57.30 Diverticulosis of large intestine without perforation or abscess without bleeding; Z86.0100 Personal history of colon polyps, unspecified; Z79.899 Other long term (current) drug therapy; J44.9 Chronic obstructive pulmonary disease, unspecified; F17.210 Nicotine dependence, cigarettes, uncomplicated